=== PATIENT | female | born 1975 | race Caucasian/White ===

== ENCOUNTER 2018-04-29 07:57 | Emergency (ER) | payer MEDICARE, MEDICAID, SELFPAY ==
[2018-04-29 08:11] VITALS: BP 165/83; PULSE 80; RESP 20; TEMP 36.8; O2SAT 100
--- NOTE | 2018-04-29 08:28 | W.ED.GENAD ---
Discharge Plan Disposition Patient Disposition: HOME Condition: Stable Discharge Details Chief Complaint: Allergic Clinical Impression: Urticaria Primary Care Provider: Gerry Cordon ED Provider: Dorian Barrett Home Meds and New Rx's Prescriptions: New prednisone 20 mg tablet 60 mg PO DAILY 4 Days Qty: 12 RF: 0 prochlorperazine maleate [Compazine] 10 mg tablet 10 mg PO Q8H PRN (Reason: nausea and vomiting) 10 Days Qty: 20 RF: 0 Continue methadone 10 MG/ML concentrate 47 mg PO DAILY RF: 0 Discharge Instructions Instructions: Urticaria (ED) Additional Instructions: if you have severe abdominal pain or difficulty breathing return to the emergency department Discharge Data Discharge Physician: Dorian Barrett Medical Decision Making 43 yo female comes in with a rash that appears to be urticaria on her torso, neck and arms. She states she used crack 2 days ago and shortly after this developed the itching rash and now has n/v for a day. Denies any abdominal pain and has no tenderness on exam so doubt sbo or other surgical pathology. No chest pain or pressure so doubt acs. Will treat with antiemetics after checking ekg for qtc prolongation given she is on methadone and start steroids and reasess. she denies any new foods or medications that would cause these symptoms pt tolerating PO, still has no abdominal tenderness now. Will prescribe her compazine for her nausea and will d/c home, return precautions given Differential Diagnosis drug reaction, withdrawal ECG Data Attestation: I personally reviewed and interpreted this ECG (s) as follows: Prior ECG tracings: not available for review Interpretation: sinus rhythm, rate of 76, normal pr, no acute ischemic findings HPI General Mode of arrival: ambulatory. Date/Time Provider Initiated Documentation: 04/29/18 08:05. Limitations to Documentation: no limitations. Information obtained by: patient. History of Present Illness 43 year old F presents to the emergency department with the chief complaint of rash, described as moderate, with intensity rated at 4. Quality is described as other (itching), Patient reports no radiation. Patient started experiencing this day(s) (2) and it has been constant. No relieving factors improve symptom(s), No exacerbating factors reported . Patient notes nausea/vomiting. Patient did receive the following treatments prior to arrival, none Related Data Home Medications Medication Instructions Recorded Confirmed methadone 47 mg PO DAILY 10/23/12 04/29/18 prednisone 60 mg PO DAILY 4 Days #12 tab 04/29/18 prochlorperazine maleate 10 mg PO Q8H PRN 10 Days #20 tab 04/29/18 [Compazine] Previous Rx's Medication Instructions Recorded prednisone 60 mg PO DAILY 4 Days #12 tab 04/29/18 prochlorperazine maleate 10 mg PO Q8H PRN 10 Days #20 tab 04/29/18 [Compazine] Allergies Allergy/AdvReac Type Severity Reaction Status Date / Time codeine [Codeine] Allergy facial Unverified 04/29/18 08:17 swelling/rash General Stated Complaint: Allergic MARIE: 3 Review of Systems Review of Systems All systems reviewed & are unremarkable except as noted in HPI and below Constitutional Denies chills, Denies fever(s) and Denies weakness Eyes Denies loss of vision ENT Denies change in voice Cardiovascular Denies chest pain and Denies dyspnea Respiratory Denies dyspnea Gastrointestinal Denies abdominal pain Genitourinary Denies dysuria Musculoskeletal Denies joint swelling Neurologic Denies loss of vision and Denies weakness Psychiatric Denies depression Endocrine Denies cold intolerance and Denies heat intolerance [facility] Social History Smoking/Tobacco Use Status: Current every day Exam Const General: no acute distress Orientation: alert HENMS Head: normal to inspection Ears: external ears normal General nose exam: external nose normal Mouth: moist mucous membranes Eyes General: appearance normal, both eyes and all related structures Neck Neck: normal visual inspection Resp Effort & Inspection: normal respiratory effort and able to speak in complete sentences Cardio Rate: regular rate GI Inspection: normal to inspection Palpation: nontender Skin General skin exam: other (multiple red patches of various sizes with mild erythema, blanches, not tender or warm to touch on torso arms and neck, no mucous membrane lesions) Neuro General: alert and oriented x3 Extrem General: normal to inspection Psych Mental Status: mental status grossly normal Course Vital Signs Temperature 36.8 C 04/29/18 08:11 Pulse 80 04/29/18 08:11 Respiratory Rate 20 04/29/18 08:11 Blood Pressure 165/83 H 04/29/18 08:11 Pulse Oximetry 100 04/29/18 08:11 Temperature 36.8 C 04/29/18 08:11 Temperature Source Temporal Artery Scan 04/29/18 08:11 Pulse 80 04/29/18 08:11 Respiratory Rate 20 04/29/18 08:11 Respiratory Effort Non-Labored 04/29/18 08:16 Blood Pressure 165/83 H 04/29/18 08:11 Blood Pressure Position Sitting 04/29/18 08:11 Pulse Oximetry 100 04/29/18 08:11 Oxygen Delivery Method Room Air 04/29/18 08:11 Oxygen Flow Rate 0 04/29/18 08:11
--- NOTE | 2018-04-29 08:32 | ED.GENADUL_ITS ---
Discharge Plan Disposition Patient Disposition: HOME Condition: Stable Discharge Details Chief Complaint: Allergic Clinical Impression: Urticaria Primary Care Provider: Gerry Cordon ED Provider: Dorian Barrett Home Meds and New Rx's Prescriptions: New prednisone 20 mg tablet 60 mg PO DAILY 4 Days Qty: 12 RF: 0 prochlorperazine maleate [Compazine] 10 mg tablet 10 mg PO Q8H PRN (Reason: nausea and vomiting) 10 Days Qty: 20 RF: 0 Continue methadone 10 MG/ML concentrate 47 mg PO DAILY RF: 0 Discharge Instructions Instructions: Urticaria (ED) Additional Instructions: if you have severe abdominal pain or difficulty breathing return to the emergency department Discharge Data Discharge Physician: Dorian Barrett Medical Decision Making 43 yo female comes in with a rash that appears to be urticaria on her torso, neck and arms. She states she used crack 2 days ago and shortly after this developed the itching rash and now has n/v for a day. Denies any abdominal pain and has no tenderness on exam so doubt sbo or other surgical pathology. No chest pain or pressure so doubt acs. Will treat with antiemetics after checking ekg for qtc prolongation given she is on methadone and start steroids and reasess. she denies any new foods or medications that would cause these symptoms pt tolerating PO, still has no abdominal tenderness now. Will prescribe her compazine for her nausea and will d/c home, return precautions given Differential Diagnosis drug reaction, withdrawal ECG Data Attestation: I personally reviewed and interpreted this ECG (s) as follows: Prior ECG tracings: not available for review Interpretation: sinus rhythm, rate of 76, normal pr, no acute ischemic findings HPI General Mode of arrival: ambulatory . Date/Time Provider Initiated Documentation: 04/29/18 08:05 . Limitations to Documentation: no limitations . Information obtained by: patient . History of Present Illness 43 year old F presents to the emergency department with the chief complaint of rash, described as moderate, with intensity rated at 4. Quality is described as other (itching), Patient reports no radiation. Patient started experiencing this day(s) (2) and it has been constant. No relieving factors improve symptom(s), No exacerbating factors reported . Patient notes nausea/ vomiting. Patient did receive the following treatments prior to arrival, none Related Data Home Medications Medication Instructions Recorded Confirmed methadone 47 mg PO DAILY 10/23/12 04/29/18 prednisone 60 mg PO DAILY 4 Days #12 tab 04/29/18 prochlorperazine maleate 10 mg PO Q8H PRN 10 Days #20 tab 04/29/18 [Compazine] Previous Rx's Medication Instructions Recorded prednisone 60 mg PO DAILY 4 Days #12 tab 04/29/18 prochlorperazine maleate 10 mg PO Q8H PRN 10 Days #20 tab 04/29/18 [Compazine] Allergies Allergy/AdvReac Type Severity Reaction Status Date / Time codeine [Codeine] Allergy facial Unverified 04/29/18 08:17 swelling/rash General Stated Complaint: Allergic MARIE: 3 Review of Systems Review of Systems All systems reviewed & are unremarkable except as noted in HPI and below Constitutional Denies chills, Denies fever(s) and Denies weakness Eyes Denies loss of vision ENT Denies change in voice Cardiovascular Denies chest pain and Denies dyspnea Respiratory Denies dyspnea Gastrointestinal Denies abdominal pain Genitourinary Denies dysuria Musculoskeletal Denies joint swelling Neurologic Denies loss of vision and Denies weakness Psychiatric Denies depression Endocrine Denies cold intolerance and Denies heat intolerance [facility] Social History Smoking/Tobacco Use Status: Current every day Exam Const General: no acute distress Orientation: alert HENCA Head: normal to inspection Ears: external ears normal General nose exam: external nose normal Mouth: moist mucous membranes Eyes General: appearance normal, both eyes and all related structures Neck Neck: normal visual inspection Resp Effort & Inspection: normal respiratory effort and able to speak in complete sentences Cardio Rate: regular rate GI Inspection: normal to inspection Palpation: nontender Skin General skin exam: other (multiple red patches of various sizes with mild erythema, blanches, not tender or warm to touch on torso arms and neck, no mucous membrane lesions) Neuro General: alert and oriented x3 Extrem General: normal to inspection Psych Mental Status: mental status grossly normal Course Vital Signs Temperature 36.8 C 04/29/18 08:11 Pulse 80 04/29/18 08:11 Respiratory Rate 20 04/29/18 08:11 Blood Pressure 165/83 H 04/29/18 08:11 Pulse Oximetry 100 04/29/18 08:11 Temperature 36.8 C 04/29/18 08:11 Temperature Source Temporal Artery Scan 04/29/18 08:11 Pulse 80 04/29/18 08:11 Respiratory Rate 20 04/29/18 08:11 Respiratory Effort Non-Labored 04/29/18 08:16 Blood Pressure 165/83 H 04/29/18 08:11 Blood Pressure Position Sitting 04/29/18 08:11 Pulse Oximetry 100 04/29/18 08:11 Oxygen Delivery Method Room Air 04/29/18 08:11 Oxygen Flow Rate 0 04/29/18 08:11
[2018-04-29] MEDS: Ondansetron O.D.T. 4 MG TABEF 8 MG PO (08:43)
--- NOTE | 2018-04-29 09:40 | NUR.NOTE ---
Nursing Note: Called [facility] and spoke with MARIANNA Fregoso. She stated that she last received methadone ; 47mg. Dorcas Boateng.
[2018-04-29] MEDS: Methadone Liquid 10 MG/ML 47 MG PO (09:44)
[2018-04-29] MEDS: predniSONE 20 MG TAB 60 MG PO (09:46)
[2018-04-29 10:30] VITALS: BP 139/98; PULSE 68; RESP 16; TEMP 36; O2SAT 68
--- NOTE | 2018-04-30 10:03 | PDOC.ERCMPRO ---
Care Management Progress Note 04/30-Dr. Barrett requested assistance with Kathi being re-established with her PCP office. Kathi used to see Dr. Cordon at [facility]. No ED f/u needed. Referral faxed to [facility].
--- NOTE | 2018-04-30 10:11 | CMPROGNOTE_ITS ---
Care Management Progress Note 04/30-Dr. Barrett requested assistance with Kathi being re-established with her PCP office. Kathi used to see Dr. Cordon at [facility]. No ED f/u needed. Referral faxed to [facility].
== END 2018-04-29 10:34 | disposition home or self-care (01) ==
PROVIDERS: Emergency Provider Emergency Medicine; PCP Family Medicine
DX: L50.9 Urticaria, unspecified (principal); R03.0 Elevated blood-pressure reading, without diagnosis of hypertension
CPT/HCPCS: 93005; 99283; 93010; J7512

== ENCOUNTER 2018-05-01 12:36 | Emergency (ER) | payer MEDICARE, MEDICAID, SELFPAY ==
[2018-05-01] VITALS (23 sets, daily range): BP systolic 157–172; BP diastolic 65–88; PULSE 60–101; RESP 22; TEMP 37.1; O2SAT 97–100
[2018-05-01] MEDS: Prochlorperazine 10 MG/2 ML VIAL IVP (13:07)
[2018-05-01] MEDS: Normal Saline 1,000 ML 1000 ML IV ×2 (13:07→15:43)
[2018-05-01 13:46] LABS: HCT 44.5 % (36.0-46.0); HGB 15.7 g/dL (12.0-15.5); Mean Corp. HGB Concentration 35.3 g/dL (32.0-36.0); Mean Corpuscular Hemoglobin 28.5 pg (27.0-33.0); Mean Corpuscular Volume 80.9 fL (80-95); Mean Platelet Volume 10.8 fL (8.0-11.0); Platelet Count 342 x1000/uL (130-400); RBC Distribution Width 14.4 % (11.7-14.6); White Blood Cell Count 22.83 k/cumm (4.4-10.8)
[2018-05-01 14:06] LABS: ALT 46 U/L (12-78); AST 27 U/L (15-37); Albumin 4.3 g/dL (3.4-5.0); Alkaline Phosphatase 81 U/L (46-116); Anion Gap 11.7 mmol/L (3-11); BUN 15 mg/dL (7-18); Bilirubin, Total 0.9 mg/dL (0.2-1.0); CO2 28.3 mmol/L (21.0-32.0); CREATININE 0.87 mg/dL (0.55-1.02); Calcium 9.1 mg/dL (8.5-10.1); Chloride 98 mmol/L (98-107); Glucose 176 mg/dL (70-100); Sodium 138 mmol/L (136-145); Total Protein 9.2 g/dL (6.4-8.2)
[2018-05-01 14:08] LABS: Potassium 2.4 mmol/L (3.5-5.1)
--- NOTE | 2018-05-01 14:23 | ED.GENADUL_ITS ---
Discharge Plan Disposition Patient Disposition: HOME Condition: Improving Discharge Details Chief Complaint: Nausea/Vomit/Diar Clinical Impression: Rash, Urticaria, Vomiting, Hypokalemia Primary Care Provider: Gerry Cordon ED Provider: Lexy Mayorga Home Meds and New Rx's Prescriptions: New hydrocortisone 2 % lotion 1 applic TP BID Qty: 29.6 RF: 0 promethazine 25 mg tablet 25 mg PO Q6H PRN (Reason: nausea and vomiting) Qty: 7 RF: 0 metformin 500 mg tablet 500 mg PO BID Qty: 30 RF: 0 blood-glucose meter [Accu-Chek Guide Glucose Meter] misc .ROUTE .MEDSUPPLY Qty: 1 RF: 0 blood sugar diagnostic [Accu-Chek Guide] strip .ROUTE .MEDSUPPLY Qty: 20 RF: 0 lancets [Lancets, Super Thin] misc .ROUTE .MEDSUPPLY Qty: 50 RF: 0 Continue methadone 10 MG/ML concentrate 47 mg PO DAILY RF: 0 prednisone 20 mg tablet 60 mg PO DAILY 4 Days Qty: 12 RF: 0 Discontinued prochlorperazine maleate [Compazine] 10 mg tablet 10 mg PO Q8H PRN (Reason: nausea and vomiting) 10 Days Qty: 20 RF: 0 Discharge Instructions Instructions: Urticaria (ED), Hypokalemia (ED), Acute Rash (ED) Additional Instructions: Finish your steroid prescription that you have at home. Stop taking the Compazine. Start taking the Phenergan as needed and directed for nausea or vomiting. Eat foods with potassium including bananas, spinach, potatoes, tomato sauce. You should receive a call from care management regarding follow-up with a primary care doctor within the next 1-2 weeks. Return immediately to the emergency department any worsening or new concerning symptoms. Discharge Data Discharge Date/Time-TO BE ENTERED AT DEPARTURE: 05/01/18 21:14 Discharge Physician: Lexy Mayorga Medical Decision Making 43-year-old female who presents with pruritic rash and vomiting for the past 3 days. Patient states she was incarcerated for 9 months and has not had medication for her diabetes or hypertension. States she was taking metformin and is unsure of her blood pressure medications but she does not check her sugar. Blood pressure 166/108. Heart 101. Afebrile. Patient has urticarial rash to extremities and torso with some excoriations consistent with scratching. Her abdomen is soft and nontender. Patient has been unable to take her prednisone and Compazine she was given here for her rash 2 days ago due to her vomiting. She also has been unable to take her methadone for the past few days due to this and she is requesting her dose of methadone here. Patient was given her dose of methadone when she was here [address] an IV, bolus IV fluids, labs, urinalysis, urine , EKG, Compazine, Solu-Medrol, Benadryl, and dose of methadone. We verified patient's dose of methadone at the [facility]. 1415 -- Labs reviewed -potassium 2.4. White blood cell count 22. Glucose 176. Bicarb 28. Anion gap 11. Urinalysis still pending. EKG notes a rate of 58, sinus bradycardia, no acute ST elevation or depression. QTc 332. QRS 96. 1545 --patient still complaining of nausea. Will give a dose of Phenergan IV. Urine resulted and note 15 ketones, negative leukocyte esterase 0-2 WBCs. Urine negative. No UTI symptoms. 1710 --patient complaining of return of nausea. Phenergan not given as it is not compatible with potassium. She had stated her nausea improved and requested food but then vomited one time. She has 50 minutes left in her potassium. Patient was offered admission but she would rather go home. Will order another 20 Meq IV to be given following her first 20 mEq. 1830 --Pt ate a full meal and no further vomiting. 0 --Pt c/o return of itching. Will give her a dose of benadryl and pepcid. A second 20 mEq of IV potassium running. 2044 --repeat potassium 3.4. Pt looks much better, rash improved and no further vomiting. Patient had requested Vistaril for itching. There is an interaction with this with methadone for risk of QT prolongation which I discussed with patient and will rather hold on this at this time. Patient states she had been taking it for the past year while she was incarcerated along with her methadone. Patient does not have a primary care doctor. Will place patient on care management list for follow-up for reevaluation and to discuss if Vistaril would be safe to continue with her methadone. Patient also states that her Compazine was not helping. Will stop the Compazine. Patient is requesting a prescription for Phenergan. Patient states she has not had her metformin or meter for the past year while she was in [facility]. She states she is taking metformin 500 mg twice daily. HPI General Mode of arrival: ambulatory . Date/Time Provider Initiated Documentation: 05/01/18 12:55 . Limitations to Documentation: no limitations . Information obtained by: patient . HPI Narrative: Patient is a 43-year-old female who presents with rash and vomiting for the past 3 days. Patient states her rash is itchy and started on her arms and torso and now has progressed to her legs. She states she has been vomiting every few minutes and unable to keep down any fluids or food. She was seen here 3 days ago for her rash and was given a prescription for prednisone and Compazine which she states she has been unable to keep down since she was here 3 days ago. She thought her rash was due to smoking marijuana laced with crack which she did 1 day before the onset of her rash began. She denies any other new meds pneumocystis soaps or detergents new foods. She also states she is on methadone for narcotic drug abuse and was given her last dose while here in the ED 3 days ago and has not been able to get to [facility] clinic since she was here 3 days ago due to her being sick with vomiting. Past medical history: Narcotic drug abuse, Diabetes, Hypertension, Hyperlipidemia Surgical history: L leg surgery Social history: Smokes tobacco, occasional marijuana, denies alcohol Meds: Methadone, prednisone, Compazine Allergies: Codeine (nausea, vomiting) LMP: End March 2017 Related Data Home Medications Medication Instructions Recorded Confirmed methadone 47 mg PO DAILY 10/23/12 05/01/18 prednisone 60 mg PO DAILY 4 Days #12 tab 04/29/18 05/01/18 blood sugar diagnostic [Accu-Chek #20 each 05/01/18 Guide strips] blood-glucose meter [Accu-Chek #1 each 05/01/18 Guide Glucose Meter] hydrocortisone 1 applic TP BID #29.6 ml 05/01/18 lancets [Lancets, Super Thin] #50 each 05/01/18 metformin 500 mg PO BID #30 tab 05/01/18 promethazine 25 mg PO Q6H PRN #7 tab 05/01/18 Previous Rx's Medication Instructions Recorded prednisone 60 mg PO DAILY 4 Days #12 tab 04/29/18 blood sugar diagnostic [Accu-Chek #20 each 05/01/18 Guide strips] blood-glucose meter [Accu-Chek #1 each 05/01/18 Guide Glucose Meter] hydrocortisone 1 applic TP BID #29.6 ml 05/01/18 lancets [Lancets, Super Thin] #50 each 05/01/18 metformin 500 mg PO BID #30 tab 05/01/18 promethazine 25 mg PO Q6H PRN #7 tab 05/01/18 Allergies Allergy/AdvReac Type Severity Reaction Status Date / Time codeine [Codeine] Allergy facial Unverified 05/01/18 12:55 swelling/rash General Stated Complaint: Nausea/Vomit/Diar MARIE: 3 Review of Systems Review of Systems All systems reviewed & are unremarkable except as noted in HPI and below Constitutional Reports as per HPI, Denies chills and Denies fever(s) Eyes Denies blurry vision ENT Denies dizziness, Denies sore throat and Denies throat swelling Cardiovascular Denies chest pain and Denies dyspnea Respiratory Denies dyspnea Gastrointestinal Denies abdominal pain, Denies diarrhea and Reports vomiting Genitourinary Denies hematuria and Denies dysuria Musculoskeletal Denies back pain and Denies numbness Integumentary/Breasts Denies lesions and Reports rash Neurologic Denies dizziness and Denies numbness Allergic/Immunologic Denies throat swelling PFSH Social History Smoking/Tobacco Use Status: Current every day Exam Const General: cooperative, healthy appearing and no acute distress [facility] Head: normal to inspection Mouth: oral mucosae normal Eyes General: appearance normal, both eyes and all related structures Neck Neck: normal visual inspection Resp Effort & Inspection: normal respiratory effort and able to speak in complete sentences Auscultation: clear to auscultation bilaterally Cardio Rate: regular rate Rhythm: regular rhythm GI Palpation: soft, not rigid and nontender Skin Rashes: rashes noted (Scattered urticarial lesions noted to arms, legs and torso. Some excoriations noted overlying urticaria. No active bleeding, discharge, fluctuance or induration per) Neuro General: alert, awake and oriented x3 Motor: muscle tone normal throughout Extrem General: normal to inspection and full ROM Psych Appearance: grossly normal Affect: normal affect Course 05/01/18 15:34 Urine - Reflex from Ua Urine Culture - Pending Laboratory Tests Range/Units 05/01/18 05/01/18 05/01/18 12:50 12:50 15:34 WBC (4.4-10.8) k/cumm 22.83 H RBC (4.00-5.20) m/cumm 5.50 H Hgb (12.0-15.5) g/dL 15.7 H Hct (36.0-46.0) % 44.5 MCV (80-95) fL 80.9 MCH (27.0-33.0) pg 28.5 MCHC (32.0-36.0) g/dL 35.3 RDW (11.7-14.6) % 14.4 Plt Count (130-400) x1000/uL 342 MPV (8.0-11.0) fL 10.8 Sodium (136-145) mmol/L 138 Potassium (3.5-5.1) mmol/L 2.4 L* Chloride (98-107) mmol/L 98 Carbon Dioxide (21.0-32.0) mmol/L 28.3 Anion Gap (3-11) mmol/L 11.7 H BUN (7-18) mg/dL 15 Creatinine (0.55-1.02) mg/dL 0.87 Estimated GFR/1.73 m2 (mL/min/1.73m2) >= 60.00 Glucose (70-100) mg/dL 176 H Calcium (8.5-10.1) mg/dL 9.1 Total Bilirubin (0.2-1.0) mg/dL 0.9 AST (15-37) U/L 27 ALT (12-78) U/L 46 Alkaline Phosphatase (46-116) U/L 81 Total Protein (6.4-8.2) g/dL 9.2 H Albumin (3.4-5.0) g/dL 4.3 Urine Color (Yellow) Yellow Urine Clarity Cloudy Urine pH (5-8) 6.5 Ur Specific [place] (1.005-1.025) 1.025 Urine Protein (Negative) mg/dL 30 H Urine Ketones (Negative) mg/dL 15 H Urine Blood (Negative) Negative Urine Nitrite (Negative) Negative Urine Bilirubin (Negative) Moderate H Urine Urobilinogen (Up TO 0.2) EU/dL >=8.0 Ur Leukocyte Esterase (Negative) Negative Urine RBC (0-2) Negative Urine WBC (0-5) HPF 0-2 Ur Epithelial Cells (Negative) HPF Rare Urine Crystals (Negative) HPF Negative Urine Bacteria (Negative) HPF Moderate Urine Casts (Negative) LPF Negative Urine Mucus (Negative) Heavy Urine Other (Negative) Rare renal Ur Culture Indicated? Yes Urine Glucose (Negative) mg/dL 100 Range/Units 05/01/18 20:30 WBC (4.4-10.8) k/cumm RBC (4.00-5.20) m/cumm Hgb (12.0-15.5) g/dL Hct (36.0-46.0) % MCV (80-95) fL MCH (27.0-33.0) pg MCHC (32.0-36.0) g/dL RDW (11.7-14.6) % Plt Count (130-400) x1000/uL MPV (8.0-11.0) fL Sodium (136-145) mmol/L 135 L Potassium (3.5-5.1) mmol/L 3.4 L D Chloride (98-107) mmol/L 103 Carbon Dioxide (21.0-32.0) mmol/L 24.0 Anion Gap (3-11) mmol/L 8.0 BUN (7-18) mg/dL 13 Creatinine (0.55-1.02) mg/dL 0.99 Estimated GFR/1.73 m2 (mL/min/1.73m2) >= 60.00 Glucose (70-100) mg/dL 267 H Calcium (8.5-10.1) mg/dL 7.8 L Total Bilirubin (0.2-1.0) mg/dL AST (15-37) U/L ALT (12-78) U/L Alkaline Phosphatase (46-116) U/L Total Protein (6.4-8.2) g/dL Albumin (3.4-5.0) g/dL Urine Color (Yellow) Urine Clarity Urine pH (5-8) Ur Specific [place] (1.005-1.025) Urine Protein (Negative) mg/dL Urine Ketones (Negative) mg/dL Urine Blood (Negative) Urine Nitrite (Negative) Urine Bilirubin (Negative) Urine Urobilinogen (Up TO 0.2) EU/dL Ur Leukocyte Esterase (Negative) Urine RBC (0-2) Urine WBC (0-5) HPF Ur Epithelial Cells (Negative) HPF Urine Crystals (Negative) HPF Urine Bacteria (Negative) HPF Urine Casts (Negative) LPF Urine Mucus (Negative) Urine Other (Negative) Ur Culture Indicated? Urine Glucose (Negative) mg/dL Vital Signs Temperature 98.8 F 05/01/18 12:45 Pulse 101 H 05/01/18 12:45 Respiratory Rate 22 05/01/18 12:45 Blood Pressure 166/88 H 05/01/18 12:45 Pulse Oximetry 100 05/01/18 12:45 Temperature 98.8 F 05/01/18 12:45 Temperature Source Temporal Artery Scan 05/01/18 12:45 Pulse 69 05/01/18 13:46 Respiratory Rate 22 05/01/18 12:45 Respiratory Effort Non-Labored 05/01/18 12:49 Blood Pressure 166/67 H 05/01/18 13:46 Blood Pressure Mean 93 05/01/18 13:46 Blood Pressure Position Supine 05/01/18 12:45 Pulse Oximetry 100 05/01/18 13:50 Oxygen Delivery Method Room Air 05/01/18 12:45 Oxygen Flow Rate 0 05/01/18 12:45 Pain Level 0 05/01/18 12:45 Lab/Test Results Lab/Test Results: Laboratory Tests Range/Units 05/01/18 05/01/18 12:50 12:50 WBC (4.4-10.8) k/cumm 22.83 H RBC (4.00-5.20) m/cumm 5.50 H Hgb (12.0-15.5) g/dL 15.7 H Hct (36.0-46.0) % 44.5 MCV (80-95) fL 80.9 MCH (27.0-33.0) pg 28.5 MCHC (32.0-36.0) g/dL 35.3 RDW (11.7-14.6) % 14.4 Plt Count (130-400) x1000/uL 342 MPV (8.0-11.0) fL 10.8 Sodium (136-145) mmol/L 138 Potassium (3.5-5.1) mmol/L 2.4 L* Chloride (98-107) mmol/L 98 Carbon Dioxide (21.0-32.0) mmol/L 28.3 Anion Gap (3-11) mmol/L 11.7 H BUN (7-18) mg/dL 15 Creatinine (0.55-1.02) mg/dL 0.87 Estimated GFR/1.73 m2 (mL/min/1.73m2) >= 60.00 Glucose (70-100) mg/dL 176 H Calcium (8.5-10.1) mg/dL 9.1 Total Bilirubin (0.2-1.0) mg/dL 0.9 AST (15-37) U/L 27 ALT (12-78) U/L 46 Alkaline Phosphatase (46-116) U/L 81 Total Protein (6.4-8.2) g/dL 9.2 H Albumin (3.4-5.0) g/dL 4.3
[2018-05-01] MEDS: methylPREDNISolone SUCC 125 MG VIAL IVP (14:46)
[2018-05-01] MEDS: Methadone Liquid 10 MG/ML 47 MG PO (14:51)
[2018-05-01] MEDS: Potassium Chloride 10 MEQ CAPCR 40 MEQ PO (15:36)
[2018-05-01] MEDS: POTASSIUM CHLORIDE 20 MEQ/100 ML BAG 50 MEQ IVPB ×2 (15:43→17:43)
[2018-05-01 15:45] LABS: Bilirubin Moderate (Negative); Blood Negative (Negative); Clarity Cloudy; Glucose 100 mg/dL (Negative); Ketones 15 mg/dL (Negative); Leukocyte Esterase Negative (Negative); Nitrite Negative (Negative); Specific Gravity 1.025 (1.005-1.025); Urobilinogen >=8.0 EU/dL (Up TO 0.2); pH 6.5 (5-8)
[2018-05-01 15:53] LABS: Epithelial Cells Rare HPF (Negative); Other Cells Rare Renal (Negative); RBC Negative (0-2); WBC 0-2 HPF (0-5)
[2018-05-01 15:54] LABS: Bacteria Moderate HPF (Negative); C & S Indicated? Yes; Casts Negative LPF (Negative); Crystals Negative HPF (Negative); Mucus Heavy (Negative)
[2018-05-01] MEDS: diphenhydrAMINE 25 MG CAP (15:56)
[2018-05-01] MEDS: diphenhydrAMINE 25 MG CAP PO (19:06)
[2018-05-01] MEDS: Famotidine 20 MG TAB PO (19:07)
[2018-05-01 20:46] LABS: BUN 13 mg/dL (7-18); CREATININE 0.99 mg/dL (0.55-1.02); Calcium 7.8 mg/dL (8.5-10.1); Chloride 103 mmol/L (98-107); Glucose 267 mg/dL (70-100); Potassium 3.4 mmol/L (3.5-5.1); Sodium 135 mmol/L (136-145)
[2018-05-01] MEDS: Promethazine 25 MG TAB PO (21:14)
[2018-05-02 01:14] VITALS: BP 157/65; PULSE 63; RESP 22; TEMP 37.1; O2SAT 98
--- NOTE | 2018-05-04 12:16 | NUR.NOTE ---
Nursing Note: Patient called stating that [facility] only has the 2.5% lotion. I called the pharmacy, they have it on order and will be getting it in tomorrow and gave the ok to prescribe 2.5% lotion per Dr. Hansel Hutchinson. I called the patient back and she is aware that it will be in tomorrow and for the correct strength. Dorcas Boateng.
== END 2018-05-01 21:14 | disposition home or self-care (01) ==
PROVIDERS: Emergency Provider Physician Assistant; PCP Family Medicine
DX: E11.9 Type 2 diabetes mellitus without complications (principal); R00.1 Bradycardia, unspecified; R21 Rash and other nonspecific skin eruption; L50.9 Urticaria, unspecified; R11.10 Vomiting, unspecified; E87.6 Hypokalemia; I10 Essential (primary) hypertension; Z79.84 Long term (current) use of oral hypoglycemic drugs
CPT/HCPCS: 36415; 80048; 80053; 85027; 87077; 93005; 96361; 96365; 96366; 96375; 99284; 81003; 81015; 87086; 93010; J0780; J2930; J3480

== ENCOUNTER 2018-05-02 09:06 | Outpatient (RCR) | payer MEDICARE, MEDICAID, SELFPAY ==
--- NOTE | 2018-05-02 09:07 | COCO.VHC ---
New/Renewal Application Submitted?: Yes (04/16/18) Notes:: Kathi contacted me because her insurance is not active yet. I faxed them the 202med again so hopefully this will go through. Kathi is having access to care issues.
== END 2018-05-30 23:59 | disposition home or self-care (01) ==
LOC: COCO 09:06
PROVIDERS: PCP Family Medicine; Visit Provider Family Medicine

== ENCOUNTER 2018-09-20 20:06 | Emergency (ER) | payer MEDICARE, MEDICAID, SELFPAY ==
[2018-09-20] VITALS (34 sets, daily range): BP systolic 113–142; BP diastolic 64–72; PULSE 68–89; RESP 13–27; TEMP 37; O2SAT 93–100
--- NOTE | 2018-09-20 20:07 | W.ED.GENAD ---
Discharge Plan Disposition Patient Disposition: HOME Condition: Good Discharge Details Chief Complaint: OD/Poison Clinical Impression: Accidental opiate poisoning Reason For Visit: PRANAV Primary Care Provider: Gerry Cordon ED Provider: Jonatan Rizzo Home Meds and New Rx's Prescriptions: Continued methadone 10 MG/ML concentrate 47 mg PO DAILY RF: 0 hydrocortisone 2 % lotion 1 applic TP BID Qty: 29.6 RF: 0 promethazine 25 mg tablet 25 mg PO Q6H PRN (Reason: nausea and vomiting) Qty: 7 RF: 0 metformin 500 mg tablet 500 mg PO BID Qty: 30 RF: 0 blood-glucose meter [Accu-Chek Guide Glucose Meter] misc .ROUTE .MEDSUPPLY Qty: 1 RF: 0 blood sugar diagnostic [Accu-Chek Guide] strip .ROUTE .MEDSUPPLY Qty: 20 RF: 0 lancets [Lancets, Super Thin] misc .ROUTE .MEDSUPPLY Qty: 50 RF: 0 Discharge Instructions Additional Instructions: Please take the information for recovery coaches. Consider contacting them for support in trying to beat your addiction. Stay with somebody responsible tonight. Return to emergency department if any issues Referrals: [facility] [Provider Group] Medical Decision Making Patient requesting no Narcan. She is awake enough and protecting her airway with normal vital signs at that I do not think she requires Narcan. We will leave her on the monitor and let her mental status come back to normal. Patient has been sleeping but awakens easily. Her vitals have been fine. Her sats have been fine. She has now been here for about 3 hours. Her friend, who is not impaired, is willing to come and get her to take responsibility for going home. I feel she is stable. She awakens very easily now. Pupils are no longer small to midsize and reactive. Patient has declined having a online health and fitness coach come in but will take their information with her. HPI General Mode of arrival: EMS. Date/Time Provider Initiated Documentation: 09/20/18 20:14. Limitations to Documentation: altered mental status. Information obtained by: patient and EMS. HPI Narrative: Patient arrives by EMS after opiate overdose. Patient is very somnolent and requires repeated questions. She will, however, wake and answer. She used about a bag from someone that she knows but does not usually get drugs from. She has a daily habit. She states after using this bag she started to feel unwell. She became very somnolent, nauseated and vomited twice. Her friend called EMS. She arrives here and has no complaints of pain. She is difficult to keep awake. Related Data Home Medications Medication Instructions Recorded Confirmed methadone 47 mg PO DAILY 10/23/12 05/01/18 blood sugar diagnostic [Accu-Chek #20 each 05/01/18 Guide] blood-glucose meter [Accu-Chek #1 each 05/01/18 Guide Glucose Meter] hydrocortisone 1 applic TP BID #29.6 ml 05/01/18 lancets [Lancets, Super Thin] #50 each 05/01/18 metformin 500 mg PO BID #30 tab 05/01/18 promethazine 25 mg PO Q6H PRN #7 tab 05/01/18 Previous Rx's Medication Instructions Recorded blood sugar diagnostic [Accu-Chek #20 each 05/01/18 Guide] blood-glucose meter [Accu-Chek #1 each 05/01/18 Guide Glucose Meter] hydrocortisone 1 applic TP BID #29.6 ml 05/01/18 lancets [Lancets, Super Thin] #50 each 05/01/18 metformin 500 mg PO BID #30 tab 05/01/18 promethazine 25 mg PO Q6H PRN #7 tab 05/01/18 Allergies Allergy/AdvReac Type Severity Reaction Status Date / Time codeine [Codeine] Allergy facial Unverified 05/01/18 12:55 swelling/rash General MARIE: 3 Review of Systems Review of Systems Unobtainable due to mental status [facility] Social History Smoking/Tobacco Use Status: Current every day Alcohol Intake: never Drug use: Daily Substance use type: heroin Details: 8 bags/day IVDA Do you feel safe at home: Yes Do you feel safe in your relationship?: Yes Exam Const General: lethargic Orientation: oriented x3 HENMT Head: normocephalic and atraumatic Eyes Pupils: pinpoint (about 2mm and minimally reactive) bilaterally Neck Neck: trachea midline and supple Resp Effort & Inspection: normal respiratory effort Auscultation: clear to auscultation bilaterally Cardio Rate: regular rate Rhythm: regular rhythm Heart Sounds: S1 normal and S2 normal Pulses: radial pulses present GI Inspection: non-distended Palpation: soft and nontender Skin General skin exam: no erythema Rashes: no rashes Other: extensive track flores in upper extremities Neuro General: oriented x3, moves all extremities and other (somnelent)
--- NOTE | 2018-09-20 23:43 | NUR.NOTE ---
Nursing Note: pt more alert, and awake. Friend Nidia to bulk picker. Friend states she is not impaired and is willing to take responsibility for pt at home. aware and approves of this plan.
== END 2018-09-20 23:59 | disposition home or self-care (01) ==
PROVIDERS: Emergency Provider Emergency Medicine; PCP Family Medicine
DX: T40.601A Poisoning by unspecified narcotics, accidental (unintentional), initial encounter (principal); R41.82 Altered mental status, unspecified; R40.0 Somnolence; R11.10 Vomiting, unspecified; F11.20 Opioid dependence, uncomplicated
CPT/HCPCS: 99284; 99282

== ENCOUNTER 2020-01-19 09:01 | Inpatient (IN) | payer MEDICARE, MEDICAID, SELFPAY ==
[2020-01-19] VITALS (65 sets, daily range): BP systolic 136–184; BP diastolic 61–114; PULSE 56–111; RESP 12–28; TEMP 36.1–37.2; O2SAT 97–100
--- NOTE | 2020-01-19 09:21 | ED.GENADUL_ITS ---
Discharge Plan Disposition Patient Disposition: [facility] INPATIENT Condition: Stable Discharge Details Chief Complaint: Nausea/Vomit/Diar Clinical Impression: Constipation, Vomiting Primary Care Provider: Unknown,Unknown ED Provider: Gagandeep Banks Home Meds and New Rx's Prescriptions: Continued metformin 500 mg tablet 500 mg PO BID Qty: 30 RF: 0 No Action buprenorphine HCl 150 mcg Film BUCCAL RF: 0 (DME) blood-glucose meter [Accu-Chek Guide Glucose Meter] misc See Dose Instructions .ROUTE .MEDSUPPLY Qty: 1 RF: 0 (DME) blood sugar diagnostic [Accu-Chek Guide test strips] strip See Dose Instructions .ROUTE .MEDSUPPLY Qty: 20 RF: 0 (DME) lancets [Lancets, Super Thin] misc See Dose Instructions .ROUTE .MEDSUPPLY Qty: 50 RF: 0 Discharge Instructions Instructions: Constipation (ED) Additional Instructions: I recommend you take an [id number] stool softener such as Dulcolax once daily in the evening to promote normal bowel movement. May use the Reglan as prescribed, as needed for nausea. IF needed may use provided ativan for persistent nausea. Follow-up with the local asset recovery specialist as discussed with them. Small, sips of fluids to maintain hydration. Medical Decision Making 44-year-old female with history of opiate abuse, most recently admitted to [facility] for rehabilitation and discharged approximately 3 to 4 weeks ago on outpatient buprenorphine, now self tapering. Now with 2 days of vomiting. Has not had a fever or abdominal distention. She arrives with blood pressure 177/112, pulse 84, afebrile and oxygenating normally. Exam reveals slight diaphoresis and piloerection. Differential diagnosis includes narcotic withdrawal, dehydration, metabolic abnormalities. Peripheral IV access difficult, I was able to establish a left EJ, patient given fluid bolus, antiemetics, screening laboratories obtained. X-ray with large amount of retained stool, no evidence of obstruction or free air. Labs know what is likely stress demargination of the white blood cell count to 12, unremarkable hematocrit of 43, platelets 215. Chemistries with sodium 139, potassium 4.2, chloride 101, bicarb 19, BUN 15, creatinine 0.8. Slight elevation of the LFTs with a total bilirubin of 1.7, AST 55, ALT 50. Lipase negative. Ultrasound was obtained which shows a single mobile gallstone but no gallbladder wall thickening. Patient with persistent emesis and underwent CT imagin. Cholelithiasis. No biliary ductal dilatation. Distended gallbladder. 2. 2 mm calcification in the head of the pancreas adjacent to or within the common duct. MRCP may be obtained for further evaluation. 3. Findings suggesting hepatic cirrhosis. Splenomegaly. 4. The findings were discussed with the emergency department on the date of the examination. Following antiemetics, fluids, patient slept, she was able to speak on the phone with a local asset recovery specialist. At approximately 8 hours of care, patient unable to tolerate even liquids by mouth and had recurrent emesis. She may have ileus, gastroenteritis, a component of narcotic withdrawal. Nonetheless, she will require overnight observation and ongoing fluid resuscitation with antiemetics. Lab Data Lab results reviewed: Yes I reviewed the patient's lab results. Labs: Laboratory Results - last 24 hr 01/19/20 01/19/20 10:20 10:20 WBC 12.82 H RBC 5.51 H Hgb 15.3 Hct 43.9 MCV 79.7 L MCH 27.8 MCHC 34.9 RDW 13.9 Plt Count 215 MPV 11.3 H Immature Gran % 0.2 Neutrophils % 72.0 Lymphocytes % 21.5 Monocytes % 4.8 Eosinophils % 1.3 Basophils % 0.2 Absolute Neutrophils 9.23 H Absolute Lymphocytes 2.76 Absolute Monocytes 0.62 Absolute Eosinophils 0.17 Absolute Basophils 0.03 Differential Comment Plt morph reviewed Poikilocytosis 1+ Sodium 139 Potassium 4.2 Chloride 101 Carbon Dioxide 19.3 L Anion Gap 18.7 H BUN 15 Creatinine 0.85 Estimated GFR/1.73 m2 >= 60.00 Glucose 237 H Calcium 9.4 Magnesium 1.9 Total Bilirubin 1.7 H AST 55 H ALT 50 Alkaline Phosphatase 73 Total Protein 8.4 H Albumin 4.0 Lipase 128 HPI General Mode of arrival: ambulatory . Date/Time Provider Initiated Documentation: 01/19/20 09:04 . Limitations to Documentation: no limitations . Information obtained by: patient . History of Present Illness 44 year old F presents to the emergency department with the chief complaint of Vomiting x 2 days, described as moderate, and is localized to the abdomen. Patient reports no radiation. Patient started experiencing this day(s) and it has been intermittent. No relieving factors improve symptom(s), No exacerbating factors reported . Patient notes denies fever/chills, headaches and shortness of breath. Patient did receive the following treatments prior to arrival, none Related Data Home Medications Medication Instructions Recorded Confirmed blood sugar diagnostic [Accu-Chek #20 each 05/01/18 Guide test strips] blood-glucose meter [Accu-Chek #1 each 05/01/18 Guide Glucose Meter] lancets [Lancets, Super Thin] #50 each 05/01/18 metformin 500 mg PO BID #30 tab 05/01/18 buprenorphine HCl mcg BUCCAL 01/19/20 Previous Rx's Medication Instructions Recorded blood sugar diagnostic [Accu-Chek #20 each 05/01/18 Guide test strips] blood-glucose meter [Accu-Chek #1 each 05/01/18 Guide Glucose Meter] lancets [Lancets, Super Thin] #50 each 05/01/18 metformin 500 mg PO BID #30 tab 05/01/18 Allergies Allergy/AdvReac Type Severity Reaction Status Date / Time codeine [Codeine] Allergy facial Unverified 01/19/20 09:11 swelling/rash General Stated Complaint: Nausea/Vomit/Diar MARIE: 3 Review of Systems Narrative: Admitted to [facility] for rehab for opiate abuse, on buprenorphine and now self tapering. Has tried to contact the [facility] clinic. No fever or abdominal distention. [facility] Social History Smoking/Tobacco Use Status: Current every day Alcohol Intake: never Drug use: Current Sobriety Substance use type: heroin Details: 8 bags/day IVDA---comming off Buprenorphine--unknown dose Do you feel safe at home: Yes Do you feel safe in your relationship?: Yes Exam Narrative Exam Narrative: GEN: awake, alert, oriented 3. Pleasant, well groomed, interactive, slight diaphoresis and piloerection. HEAD: Normocephalic, atraumatic ENT: Mucous membranes moist, oropharynx unremarkable, External ear exam unremarkable EYES: PERRL, EOMI NECK: Full ROM, no DAT, no menigismus CHEST/RESP: Nontender, clear to auscultation bilateral, no wheeze/rhonchi/rales CARDIOVASCULAR: RRR, no murmur, rub marko. 2+ Rad pulse bilateral ABDOMEN: Soft, nontender, no mass. +Bowel sounds EXT: Full ROM, no edema, no rash Neuro: Grossly normal neurologic exam, conversant, interactive. Psych: Speech fluent, thoughts congruent, affect normal Course Vital Signs Vital signs: Vital Signs Temperature 36.1 C L 01/19/20 09:06 Pulse 84 01/19/20 09:06 Respiratory Rate 20 01/19/20 09:06 Blood Pressure 177/112 H 01/19/20 09:06 Pulse Oximetry 97 01/19/20 09:06 Temperature 36.1 C L 01/19/20 09:06 Temperature Source Temporal Artery Scan 01/19/20 09:06 Pulse 84 01/19/20 09:06 Respiratory Rate 01/19/20 09:06 Respiratory Effort Non-Labored 01/19/20 09:10 Blood Pressure 177/112 H 01/19/20 09:06 Blood Pressure Position Sitting 01/19/20 09:06 Pulse Oximetry 97 01/19/20 09:06 Oxygen Delivery Method Room Air 01/19/20 09:06 Oxygen Flow Rate 0 01/19/20 09:06 Pain Level 0 01/19/20 09:06 Procedures EJ/Peripheral Line Neck L: Time Out Performed: Yes Skin Cleansed in Sterile Fashion: Yes Size (gauge): 18 IV Secured and Dressing Applied: Yes Patient Tolerated Procedure: well
[2020-01-19] MEDS: LORazepam 2 MG/ML VIAL (10:08)
[2020-01-19] MEDS: Ondansetron 4 MG/2 ML VIAL IVP ×2 (10:32→11:47)
[2020-01-19] MEDS: LORazepam 2 MG/ML VIAL 1 MG IVP (10:36)
[2020-01-19] MEDS: Normal Saline 1,000 ML 1000 ML IV ×2 (10:36→11:50)
[2020-01-19 10:48] LABS: Abs Immature Grans 0.03 k/cumm (0.0-0.09); Absolute Basophil Count 0.03 k/cumm (0.0-0.2); Absolute Eosinophil Count 0.17 k/cumm (0.0-0.7); Absolute Lymphocyte Count 2.76 k/cumm (1.2-3.4); Basophils % 0.2; Eosinophils % 1.3; HCT 43.9 % (36.0-46.0); HGB 15.3 g/dL (12.0-15.5); Immature Grans % 0.2 %; Lymphocytes % 21.5; Mean Corp. HGB Concentration 34.9 g/dL (32.0-36.0); Mean Corpuscular Hemoglobin 27.8 pg (27.0-33.0); Mean Corpuscular Volume 79.7 fL (80-95); Mean Platelet Volume 11.3 fL (8.0-11.0); Monocytes % 4.8; RBC 5.51 m/cumm (4.00-5.20); RBC Distribution Width 13.9 % (11.7-14.6); White Blood Cell Count 12.82 k/cumm (4.4-10.8)
[2020-01-19 10:53] LABS: Absolute Monocyte Count 0.62 k/cumm (0.11-0.7); Absolute Neutrophil Count 9.23 k/cumm (1.2-6.7)
[2020-01-19 11:08] LABS: ALT 50 U/L (14-59); AST 55 U/L (15-37); Alkaline Phosphatase 73 U/L (46-116); Anion Gap 18.7 mmol/L (3-11); BUN 15 mg/dL (7-18); Bilirubin, Total 1.7 mg/dL (0.2-1.0); CO2 19.3 mmol/L (21.0-32.0); CREATININE 0.85 mg/dL (0.55-1.02); Calcium 9.4 mg/dL (8.5-10.1); Chloride 101 mmol/L (98-107); Glucose 237 mg/dL (74-106); Lipase 128 U/L (73-393); Magnesium 1.9 mg/dL (1.8-2.4); Potassium 4.2 mmol/L (3.5-5.1); Sodium 139 mmol/L (136-145); Total Protein 8.4 g/dL (6.4-8.2)
[2020-01-19 11:14] LABS: Diff Comment PLT Morph Reviewed; Platelet Count 215 x1000/uL (130-400)
[2020-01-19 11:18] LABS: Poikilocytes 1+
--- NOTE | 2020-01-19 11:28 | DI.RAD_ITS ---
EXAM: 2D digital imaging was performed. CLINICAL HISTORY: vomiting. COMPARISON: No exams were available for comparison TECHNIQUE: Supine and uprightSupine and Lateral views of the abdomen was performed. FINDINGS: LUNG BASES: No focal consolidating infiltrates. BOWEL GAS PATTERN: Large amount of retained stool consistent with constipation. No evidence of obstr uction. FREE AIR: None. CALCIFICATIONS: No radiopaque calcifications. OSSEOUS STRUCTURES: Normal for age. OTHER FINDINGS: None. IMPRESSION: Constipation. DATA REPOSITORY: RADIATION DOSE DELIVERED:
--- NOTE | 2020-01-19 12:30 | DI.US_ITS ---
EXAM: US ABDOMEN LIMITED CLINICAL HISTORY: vomiting, elevated bilirubin. Evaluate RUQ please TECHNIQUE: Ultrasound abdomen performed using standard protocol. COMPARISON: No exams were available for comparison FINDINGS: IVC: Visualized portions normal caliber. PANCREAS: Normal where visualized. LIVER: 19.7 cm in length. There is a lobulated contour of the liver suggesting hepatic cirrhosis. H epatopedal flow in the Portal Vein. GALLBLADDER: 0.9 cm mobile gallstone. No evidence of wall thickening. No pericholecystic fluid ident ified. Distended gallbladder measuring 4.2 cm in diameter. BILIARY SYSTEM: Common bile duct measures 3.1 mm. No intrahepatic biliary ductal dilation. MENDOZA'S SIGN: Negative. KIDNEYS: Right kidney is unremarkable. No evidence of renal calculi. No evidence of hydronephrosis. No renal mass or cyst identified. IMPRESSION: 1. Cholelithiasis. No findings to suggest acute cholecystitis. No biliary ductal dilatation. 2. Hepatomegaly and findings suggestive of hepatic cirrhosis. 3. The findings were discussed with the emergency department on the date of the examination. DATA REPOSITORY:
[2020-01-19] MEDS: Normal Saline 250 ML IV (14:45)
--- NOTE | 2020-01-19 14:55 | DI.CT_ITS ---
EXAM: CT ABDOMEN PELVIS WO CLINICAL HISTORY: vomiting, poor access (EJ), hx IVDU. TECHNIQUE: Imaging Protocol: Axial computed tomography images with coronal and sagittal reformatted images were created and reviewed. COMPARISON: US US ABDOMEN LIMITED from 01/19/2020 FINDINGS: ABDOMEN: Lung Bases: Normal where visualized. Liver: Normal density. No measurable mass. There is a lobulated contour to the liver consistent with hepatic cirrhosis. Gallbladder and biliary tract: Single gallstone visualized. Distended gallbladder with a diameter 4. 7 cm. No biliary ductal dilatation. Pancreas: Normal density, no abnormal calcifications or inflammatory process. There is a 2 mm calcifi cation in the head of the pancreas adjacent to or within the common duct. (Series 3, image 318). Spleen: Splenomegaly. 14.8 cm in length. Kidneys: Normal size, contour and axis.No radiodense stones or obstructive uropathy. No masses seen. Adrenal glands: No mass is seen. Lymph nodes: Within normal limits. Abdominal Aorta: Abdominal portion non-dilated. Atherosclerosis. PELVIS: Bladder:Symmetric distention, no gross wall thickening. Bowel: No obstruction or bowel wall thickening. There is a moderate amount of stool throughout the co jose guadalupe. There is a normal appendix. Peritoneal cavity: No ascites, collection or mesenteric inflammatory response Reproductive organs: Within normal limits. Bones: Mild degenerative changes. Soft Tissues: Small fat containing umbilical hernia. IMPRESSION: 1. Cholelithiasis. No biliary ductal dilatation. Distended gallbladder. 2. 2 mm calcification in the head of the pancreas adjacent to or within the common duct. MRCP may be obtained for further evaluation. 3. Findings suggesting hepatic cirrhosis. Splenomegaly. 4. The findings were discussed with the emergency department on the date of the examination. RADIATION DOSE DELIVERED: Total DLP DATA REPOSITORY: All CT scans at this facility are submitted to the National Radiology Data Registry (NRDR) Dose Index Registry (DIR) with the [employer] (ACR). RADIATION OPTIMIZATION: All CT scans at this facility use at least one of these dose optimization te chniques: automated exposure control; mA and/or kV adjustment per patient size (includes targeted exa ms where dose is matched to clinical indication); or iterative reconstruction.
[2020-01-19] MEDS: Normal Saline 1,000 ML 150 ML IV ×2 (17:50→22:05)
--- NOTE | 2020-01-19 17:57 | HPE_ITS ---
Date of service: 01/19/20 Time of Service: 17:57 Assessment and Plan Assessment and plan (1) Intractable nausea and vomiting: Start date: 01/19/20 Status: Acute Assessment and plan: This is a 44-year-old lady with intractable nausea and vomiting which may be secondary to some opiate withdrawal with patient self weaning off Suboxone with no medical follow-up to continue this treatment at this time. She appears to be responding to IV Reglan and sublingual Ativan with IV hydration for dehydration and metabolic acidosis. We will continue IV fluids overnight and advance to clear liquids as tolerated. Follow-up labs in the morning. The patient does have cholelithiasis but does not appear to have acute gallbladder symptoms with surgical consultation if she has recurrent abdominal pain associated with her nausea vomiting. Her gallbladder issue can be worked up further as an outpatient. (2) Moderate opioid dependence on maintenance therapy: Status: Chronic Assessment and plan: Patient needs follow-up for outpatient care to be established in the morning with a better plan of chronic Suboxone treatment and counseling for opioid abuse which appears to be polysubstance abuse at this time. (3) HTN (hypertension): Status: Chronic Assessment and plan: Patient states she had been clonidine and this will be restarted for blood pressure but also treating some of her anxiety with probable opiate withdrawal. This can be adjusted short-term for blood pressure control. She will need better follow-up as an outpatient. Qualifiers: Hypertension type: essential hypertension Qualified Code(s): I10 - Essential (primary) hypertension (4) Diabetes type 2, controlled: Status: Chronic Assessment and plan: Patient states she has not been on metformin or any treatment in recent past and we will follow glucometers with insulin coverage for now. We will check her hemoglobin A1c. She needs to establish with a local PCP for monitoring treatment of this problem. Qualifiers: Diabetes mellitus complication status: without complication Diabetes mellitus senior living insulin use: without senior living use Qualified Code(s): E11.9 - Type 2 diabetes mellitus without complications History of Present Illness History of Present Illness Chief Complaint: Intractable vomiting with nausea and upper abdominal pain for 2 days Narrative: This is a 44-year-old lady who recently incarcerated and then sent to [facility] for rehabilitation of opioid abuse. Patient was discharged on Suboxone and other medications but was only given 3 days supply. She was unable to establish with local physician and states that she had been on clonidine in the past for blood pressure but this had since stopped. She had also had been on metformin in the past but this too had been stopped during her incarceration and rehabilitation. She was unable to establish with a local clinic and was self weaning off Suboxone with no other medications. She does admit to smoking pipe with marijuana a day or 2 prior to admission and her urine drug screen from the ED did test positive for cocaine. It was not positive for THC. She had upper abdominal pain beginning 2 days prior to admission but no radiation into her back or shoulders and was associate with some bloating with associated nausea and vomiting. After 2 days of nausea and vomiting she reported to the ED was found to have dehydration with metabolic acidosis without having been on metformin recently. She also had mild hyperglycemia. Her blood pressure was uncontrolled having been off medical therapy. Imaging did reveal some cholelithiasis with no signs of obstruction but an enlarged gallbladder without signs of cholecystitis. At the time of the patient she was not having abdominal discomfort and was less nauseated with n.p.o. status and IV hydration along with IV Reglan and sublingual Ativan. She did ask be advanced on clear liquids which will be done. She was admitted for observation because of uncontrolled emesis nausea in the ED despite aggressive IV hydration and IV Phenergan, Zofran and Ativan. Review of Systems Narrative: 13 point review of systems otherwise unrevealing with patient having chaotic social status and no local physician for consistent medical therapy. She also has a variable history with her explanation of positive cocaine from smoking a dirty marijuana pipe but having no positive THC in her urine. [facility] Medical History (Updated 01/19/20 @ 23:26 by Andry Michelle) Diabetes type 2, controlled (Chronic) HTN (hypertension) (Chronic) Moderate opioid dependence on maintenance therapy (Chronic) Surgical History (Updated 01/19/20 @ 23:05 by Andry Michelle) Status post open reduction with internal fixation (ORIF) of fracture of ankle (Acute) Left Social History Smoking/Tobacco Use Status: Current every day Alcohol Intake: never Drug use: Current Sobriety Substance use type: heroin Details: 8 bags/day IVDA---comming off Buprenorphine--unknown dose Do you feel safe at home: Yes Do you feel safe in your relationship?: Yes Meds Home Medications and Allergies Home Medications Medication Instructions Recorded Confirmed Type blood sugar diagnostic [Accu-Chek #20 each 05/01/18 Rx Guide test strips] blood-glucose meter [Accu-Chek #1 each 05/01/18 Rx Guide Glucose Meter] lancets [Lancets, Super Thin] #50 each 05/01/18 Rx metformin 500 mg PO BID #30 tab 05/01/18 Rx buprenorphine HCl mcg BUCCAL 01/19/20 History Allergies Allergy/AdvReac Type Severity Reaction Status Date / Time codeine [Codeine] Allergy facial Unverified 01/19/20 09:11 swelling/rash Exam Narrative Exam Narrative: General: Patient appears older than stated age, flattened affect but good eye contact with pressured speech. She is alert and oriented x3. Moderate distress from her dry mouth and recent emesis making her feel sore though she has no distress from nausea or abdominal pain presently. HEENT: Normocephalic, eyes with pupils were and reactive to light symmetrically, sclera anicteric and extraocular intact. Oropharynx with dry mucosa and patient being edentulous. Nose without lesions. External ears without lesions. Neck: Supple without JVD. Back: Stooped posture with no CVA tenderness. Lungs: Fair aeration with bronchovesicular breath sounds diffusely, localizing rales or rhonchi and no expiratory wheeze. Breast: Exam deferred. Heart: Regular rate and rhythm with 3/6 pansystolic murmur auscultated over the left femoral border and apex. No rubs or gallops. Abdomen: Obese contour, soft and nontender to palpation with negative Patricia sign. Bowel sounds positive in all quadrants. Genital/rectal: Exam deferred. Extremities: Nonpitting edema over lower extremities with peripheral pulses intact, all joints with fair eye motion, no clubbing or cyanosis. Well-healed scar over left lateral ankle. Skin: Normal color, warm and dry with no rashes noted except for neurodermatitis excoriation scars over the face and upper extremities. Neuro: Cranial nerves II through XII grossly intact, no focalizing motor deficits. Psych: Anxious with pressured speech but normal thought processes. She does have vagueness when describing her social history and drug use with inconsistencies. There may be some denial. Remote and recent memory intact. Results Imaging Imaging Studies: EXAM: US ABDOMEN LIMITED CLINICAL HISTORY: vomiting, elevated bilirubin. Evaluate RUQ please TECHNIQUE: Ultrasound abdomen performed using standard protocol. COMPARISON: No exams were available for comparison FINDINGS: IVC: Visualized portions normal caliber. PANCREAS: Normal where visualized. LIVER: 19.7 cm in length. There is a lobulated contour of the liver suggesting hepatic cirrhosis. Hepatopedal flow in the Portal Vein. GALLBLADDER: 0.9 cm mobile gallstone. No evidence of wall thickening. No pericholecystic fluid identified. Distended gallbladder measuring 4.2 cm in diameter. BILIARY SYSTEM: Common bile duct measures 3.1 mm. No intrahepatic biliary ductal dilation. PATRICIA'S SIGN: Negative. KIDNEYS: Right kidney is unremarkable. No evidence of renal calculi. No evidence of hydronephrosis. No renal mass or cyst identified. IMPRESSION: 1. Cholelithiasis. No findings to suggest acute cholecystitis. No biliary ductal dilatation. 2. Hepatomegaly and findings suggestive of hepatic cirrhosis. 3. The findings were discussed with the emergency department on the date of the examination. DATA REPOSITORY: Ordered By: Gagandeep Banks M.D. CC: Dictated By: Jonatan Cook M.D. 01/19/20 1333 EXAM: CT ABDOMEN PELVIS WO CLINICAL HISTORY: vomiting, poor access (EJ), hx IVDU. TECHNIQUE: Imaging Protocol: Axial computed tomography images with coronal and sagittal reformatted images were created and reviewed. COMPARISON: US US ABDOMEN LIMITED from 01/19/2020 FINDINGS: ABDOMEN: Lung Bases: Normal where visualized. Liver: Normal density. No measurable mass. There is a lobulated contour to the liver consistent with hepatic cirrhosis. Gallbladder and biliary tract: Single gallstone visualized. Distended gallbladder with a diameter 4.7 cm. No biliary ductal dilatation. Pancreas: Normal density, no abnormal calcifications or inflammatory process. There is a 2 mm calcification in the head of the pancreas adjacent to or within the common duct. (Series 3, image 318). Spleen: Splenomegaly. 14.8 cm in length. Kidneys: Normal size, contour and axis.No radiodense stones or obstructive ur opathy. No masses seen. Adrenal glands: No mass is seen. Lymph nodes: Within normal limits. Abdominal Aorta: Abdominal portion non-dilated. Atherosclerosis. PELVIS: Bladder:Symmetric distention, no gross wall thickening. Bowel: No obstruction or bowel wall thickening. There is a moderate amount of stool throughout the colon. There is a normal appendix. Peritoneal cavity: No ascites, collection or mesenteric inflammatory response Reproductive organs: Within normal limits. Bones: Mild degenerative changes. Soft Tissues: Small fat containing umbilical hernia. IMPRESSION: 1. Cholelithiasis. No biliary ductal dilatation. Distended gallbladder. 2. 2 mm calcification in the head of the pancreas adjacent to or within the common duct. MRCP may be obtained for further evaluation. 3. Findings suggesting hepatic cirrhosis. Splenomegaly. 4. The findings were discussed with the emergency department on the date of the examination. RADIATION DOSE DELIVERED: Total DLP DATA REPOSITORY: All CT scans at this facility are submitted to the National Radiology Data Registry (NRDR) Dose Index Registry (DIR) with the [employer] (ACR). RADIATION OPTIMIZATION: All CT scans at this facility use at least one of these dose optimization techniques: automated exposure control; mA and/or kV adjustment per patient size (includes targeted exams where dose is matched to clinical indication); or iterative reconstruction. [id number]: Total DLP = 0.00 mGy-cm Ordered By: Gagandeep Banks M.D. CC: Dictated By: Jonatan Cook M.D. 01/19/20 1523 EXAM: 2D digital imaging was performed. CLINICAL HISTORY: vomiting. COMPARISON: No exams were available for comparison TECHNIQUE: Supine and uprightSupine and Lateral views of the abdomen was performed. FINDINGS: LUNG BASES: No focal consolidating infiltrates. BOWEL GAS PATTERN: Large amount of retained stool consistent with constipation. No evidence of obstruction. FREE AIR: None. CALCIFICATIONS: No radiopaque calcifications. OSSEOUS STRUCTURES: Normal for age. OTHER FINDINGS: None. IMPRESSION: Constipation. DATA REPOSITORY: RADIATION DOSE DELIVERED: Ordered By: Gagandeep Banks M.D. CC: Dictated By: Jonatan Cook M.D. 01/19/20 1202 Labs Result diagrams: 01/19/20 10:20 01/19/20 10:20 Labs: Laboratory Results - last 24 hr 01/19/20 01/19/20 10:20 10:20 WBC 12.82 H RBC 5.51 H Hgb 15.3 Hct 43.9 MCV 79.7 L MCH 27.8 MCHC 34.9 RDW 13.9 Plt Count 215 MPV 11.3 H Immature Gran % 0.2 Neutrophils % 72.0 Lymphocytes % 21.5 Monocytes % 4.8 Eosinophils % 1.3 Basophils % 0.2 Absolute Neutrophils 9.23 H Absolute Lymphocytes 2.76 Absolute Monocytes 0.62 Absolute Eosinophils 0.17 Absolute Basophils 0.03 Differential Comment Plt morph reviewed Poikilocytosis 1+ Sodium 139 Potassium 4.2 Chloride 101 Carbon Dioxide 19.3 L Anion Gap 18.7 H BUN 15 Creatinine 0.85 Estimated GFR/1.73 m2 >= 60.00 Glucose 237 H Calcium 9.4 Magnesium 1.9 Total Bilirubin 1.7 H AST 55 H ALT 50 Alkaline Phosphatase 73 Total Protein 8.4 H Albumin 4.0 Lipase 128 Last Vital Signs Temp 36.1 C L 01/19/20 09:06 Pulse 67 01/19/20 17:01 Resp 15 01/19/20 17:10 BP 177/86 H 01/19/20 17:01 Pulse Ox 100 01/19/20 17:10 COVID-19 Screening Have you,or household,traveled outside [place] in last 14 days?: No Had IN PERSON contact w/suspected or confirmed C-19 person: No
[2020-01-19 18:40] LABS: Bilirubin Small (Negative); Blood Large (Negative); Clarity Clear (Clear); Glucose 100 mg/dL (Negative); Ketones >=160 mg/dL (Negative); Leukocyte Esterase Negative (Negative); Nitrite Negative (Negative); Specific Gravity >= 1.030 (1.005-1.025)
[2020-01-19 18:47] LABS: WBC 0-2 HPF (0-5)
[2020-01-19 18:48] LABS: Bacteria Rare HPF (Negative); C & S Indicated? Yes; Casts Negative LPF (Negative); Crystals Negative HPF (Negative); Epithelial Cells Few HPF (Negative); Mucus Negative (Negative)
[2020-01-19] MEDS: Metoclopramide 10 MG/2 ML VIAL IVP (18:55)
[2020-01-19] MEDS: Heparin 5,000 UNITS/ML VIAL 5000 UNITS SC (18:57)
[2020-01-19 19:36] LABS: *AMPHETAMINES SCREEN URINE Negative (Negative); *BARBITURATES SCREEN URINE Negative (Negative); *BENZODIAZEPINES SCREEN URINE Negative (Negative); Cannabinoids THC Negative (Negative); Cocaine Screen,Urine POSITIVE (Negative); METHADONE URINE SCREEN Negative (Negative); OPIATES URINE SCREEN Negative (Negative)
[2020-01-19 19:38] LABS: Tricyclic Antidepressants Negative (Negative)
[2020-01-19 20:50] LABS: INR 1.1 (0.9-1.1); Prothrombin Time 11.2 sec (9.3-11.0)
[2020-01-19] MEDS: cloNIDine 0.1 MG TAB 0.2 MG PO (23:21)
[2020-01-19] MEDS: LORazepam 1 MG TAB PO/SL (23:26)
[2020-01-20] MEDS: Heparin 5,000 UNITS/ML VIAL 5000 UNITS SC ×3 (02:29→18:31)
[2020-01-20] MEDS: Metoclopramide 10 MG/2 ML VIAL IVP (04:12)
[2020-01-20] MEDS: Normal Saline 1,000 ML 150 ML IV ×4 (04:18→23:36)
[2020-01-20 04:19] VITALS: BP 145/78; PULSE 89; RESP 16; TEMP 37; O2SAT 98
[2020-01-20 07:29] VITALS: BP 178/97; PULSE 91; RESP 20; TEMP 37; O2SAT 100
[2020-01-20 07:53] LABS: HCT 41.8 % (36.0-46.0); HGB 14.5 g/dL (12.0-15.5); Mean Corp. HGB Concentration 34.7 g/dL (32.0-36.0); Mean Corpuscular Volume 80.7 fL (80-95); Mean Platelet Volume 10.7 fL (8.0-11.0); Platelet Count 203 x1000/uL (130-400); RBC 5.18 m/cumm (4.00-5.20); RBC Distribution Width 13.7 % (11.7-14.6); White Blood Cell Count 13.61 k/cumm (4.4-10.8)
--- NOTE | 2020-01-20 07:55 | INITIAL_ITS ---
- If Service Date Differs Date of service: 01/20/20 Time of Service: 07:56 Care Management Initial Assess REASON FOR HOSPITALIZATION:: Intractable Emesis PAST MEDICAL HISTORY/PAST SURGICAL HISTORY:: DM, HTN, Opiod dependency not currently receiving treatment servcies (01/20/20) PREVIOUS FUNCTIONAL STATUS/SOCIAL/FAMILY SUPPORTS:: Kathi has 5 children that live local, she has three adult children and two minors. Her youngest is 8 years old and is in the permanant custody of [facility]. Kathi states she is living in the local [facility]. She describes no support system, she states that she is disabled r/t to her mental health. She was to start Intensive outpatient treatment through [facility] however she missed her appointment yesterday. She does not have transportation, she states she does not have friends locally and does not use [facility] at this time. She was recently incarcerated and transition to [facility] for substance use treatment and rehabilitation. She was transition to a [facility] program in [place] however she failed to show and was dismissed from the program. Kathi is indepdent with ADL's and care for herself she does not use any assisted devices at baseline. CURRENT FUNCTIONAL STATUS:: Kathi is drowsey during assessment, she does engage during CM assessment. She describes recent events prior to admission, however it is difficult to follow her timeline. It appears she was released from senior living in October dirrectly to [facility] for about 4 weeks, she states from there she was placed at the [facility] in [place], [place]. She states she was enrolled at [facility] in [place], [place] but was dismissed for a missed appointment. She did not want to return to [facility] as she knows many people and felt that it would be a trigger for her. Today she is willing to establish care at [facility], she signed a consent for this CM to assist with services, she states she would also like a primary care provider, she has not been able to establish on her own. She is willing to participate with [facility]. Kathi feels confident and states her goal is access to treatment. She understands how to access housing and has been able to meet with economic services for her renewell every two weeks. ADVANCE DIRECTIVES:: None on file not completed at this time, CM will offer the forms and assitance if needed. Has patient been provided with info about the portal/API?: Yes Did the patient sign up for the portal?: No CODE STATUS:: Full Code INSURANCE COVERAGE / FINANCIAL ISSUES:: Medicare, Medicaid CURRENT HOME/COMMUNITY SERVICES/EQUIPMENT:: No current services, at this time. Referrals to [facility], SUSAN, new PCP. PRIMARY CARE PHYSICIAN:: Referring to local PCP at [facility] as Peggy Wylie was telephone provider POTENTIAL DISCHARGE NEEDS:: Follow up appointment with [facility] as the provider psychologist personnel, referrals as reviewed. Transportation home via [facility]. PATIENT/FAMILY EDUCATION NEEDS:: Discharge education, limitations and follow up plan of care including ask me three and self management. ANTICIPATED BARRIERS TO DISCHARGE:: Access to services, including addiction services. TRANSPORTATION:: Via [facility] at time of discharge. PLAN:: Kathi is currently receiving IV fluids and replacement K+. She is tolerating a clear liquid diet. Anticipate she will be discharged when medically cleared.
[2020-01-20] MEDS: LORazepam 1 MG TAB PO/SL (08:04)
[2020-01-20] MEDS: cloNIDine 0.1 MG TAB 0.2 MG PO ×3 (08:04→20:17)
[2020-01-20 08:15] LABS: ALT 37 U/L (14-59); AST 37 U/L (15-37); Albumin 3.3 g/dL (3.4-5.0); Alkaline Phosphatase 60 U/L (46-116); Anion Gap 12.3 mmol/L (3-11); BUN 11 mg/dL (7-18); Bilirubin, Total 1.2 mg/dL (0.2-1.0); CO2 20.7 mmol/L (21.0-32.0); CREATININE 0.71 mg/dL (0.55-1.02); Calcium 7.6 mg/dL (8.5-10.1); Chloride 105 mmol/L (98-107); Glucose 173 mg/dL (74-106); Potassium 3.1 mmol/L (3.5-5.1); Sodium 138 mmol/L (136-145); Total Protein 7.6 g/dL (6.4-8.2)
[2020-01-20 08:23] LABS: Hemoglobin A1C 9.4 % (3.8-5.6)
[2020-01-20] MEDS: Insulin Aspart 300 UNITS/3 ML PEN SC (09:08)
[2020-01-20] MEDS: Docusate Sodium 100 MG CAP PO ×2 (09:08→20:17)
[2020-01-20 09:41] LABS: Procalcitonin < 0.1 ng/mL
[2020-01-20] MEDS: Normal Saline Flush 10 ML SYR IVP (10:15)
[2020-01-20] MEDS: Pantoprazole 40 MG VIAL IVP (10:16)
[2020-01-20] MEDS: POTASSIUM CHLORIDE 20 MEQ/100 ML BAG 50 MEQ IVPB ×2 (10:16→12:32)
[2020-01-20 11:36] VITALS: BP 122/77; PULSE 99; RESP 19; TEMP 36.5; O2SAT 100
[2020-01-20 14:40] LABS: COVID-19 RT-PCR UVMMC Result Negative (Negative)
[2020-01-20 15:36] VITALS: BP 136/85; PULSE 78; RESP 16; TEMP 36.2; O2SAT 99
--- NOTE | 2020-01-20 16:14 | PHA.REVIEW ---
Pharmacy Admission Review - Admission Clinical Review (Last Updated 01/19/20 @ 23:04 by Andry Michelle) Intractable nausea and vomiting (Acute) Constipation (Acute) Vomiting (Acute) codeine [Codeine] Allergy (Unverified 01/19/20 09:11) facial swelling/rash Height 5 ft 1 in Weight 83.3 kg - Renal Dosing Renal Dosing: BUN 11 mg/dL (7-18) 01/20/20 07:34 Creatinine 0.71 mg/dL (0.55-1.02) 01/20/20 07:34 Medications needing adjustments: Reviewed - Anticoagulation Anticoagulation: Hgb 14.5 g/dL (12.0-15.5) 01/20/20 07:34 Hct 41.8 % (36.0-46.0) 01/20/20 07:34 Plt Count 203 x1000/uL (130-400) 01/20/20 07:34 INR 1.1 (0.9-1.1) 01/19/20 20:25 Creatinine 0.71 mg/dL (0.55-1.02) 01/20/20 07:34 DVT Prohphylaxis: N/A Therapeutic Anticoagulation: N/A - Opiate Usage Evaluate Pain Scale/Pains Meds: N/A Scheduled Bowel Reg ordered if on Opiates?: Yes (PRN) - Relevant Labs Sodium 138 mmol/L (136-145) 01/20/20 07:34 Potassium 3.1 mmol/L (3.5-5.1) L D 01/20/20 07:34 Chloride 105 mmol/L (98-107) 01/20/20 07:34 Magnesium 1.9 mg/dL (1.8-2.4) 01/19/20 10:20 C-Reactive Protein 0.50 mg/dL (0.0-0.3) H 01/20/20 07:34 Electrolytes, C-Reactive P, ESR: Reviewed (k+ repleted) - DM Control DM Control: Glucose 173 mg/dL (74-106) H 01/20/20 07:34 Hemoglobin A1c 9.4 % (3.8-5.6) H 01/20/20 07:34 Finger Stick Blood Glucose 133 Finger Stick Blood Glucose 133 Finger Stick Blood Glucose 155 Insulin Dosing: Reviewed (aspar per SS) - Heart Failure/HI EF%, JACIEL's, B-Blockers, Diuretics: Reviewed - BP Control BP Control: Blood Pressure 136/85 Blood Pressure 122/77 Blood Pressure 178/97 Blood Pressure 145/78 If elevated: Reviewed List meds needing interventions: clonidine ordered but does not have PCP so uknown hx of BP meds - Qtc Review If Elevated: N/A - IV to PO Switch IV Medications: Reviewed - Home Meds Home Med List reviewed: Reviewed Relevent Home Meds Not ordered & why?: metformin - aspart per SS ordered - Current meds Current Medication Order Review: Reviewed - Comments Comments/Follow Ups: ADAM reached out to [facility] and the provider their recommended to start patient with 4mg of suboxone now with an additional 4mg 1 hour later (~1700 and 1800) and then give 12mg tomorrow. ADAM has made appt for pt with [facility] on Saturday.
[2020-01-20] MEDS: Buprenorphine/Naloxone 4 mg/1 mg FILM 1 EACH SL ×2 (16:57→18:31)
--- NOTE | 2020-01-20 18:00 | W.PM.PROGNOT ---
Date of Service Date of service: 01/20/20 Time of Service: 18:00 Assessment and Plan Assessment and plan (1) Intractable nausea and vomiting: Status: Acute Assessment and plan: Appears to be due to opioid withdrawal. Improved. Tolerating clears. Plan to advance diet as tolerated. Continue symptomatic management of opioid withdrawal - also, reintroducing outpatient suboxone with JOSETTE's guidance. (2) Dehydration: Status: Acute Assessment and plan: Continue IVF (3) Moderate opioid dependence on maintenance therapy: Status: Chronic Assessment and plan: As above (4) HTN (hypertension): Status: Chronic Assessment and plan: Continue clonidine Qualifiers: Hypertension type: essential hypertension Qualified Code(s): I10 - Essential (primary) hypertension (5) Diabetes type 2, controlled: Status: Chronic Assessment and plan: A1C of 9.4. Continue SSI. Will assess insulin requirements prior to making decisions on outpatient therapy. So far, the patient has required 1 unit of insulin in the hospital, but her PO intake has not been the best. Qualifiers: Diabetes mellitus parts counterman insulin use: without halfway use Diabetes mellitus complication status: without complication Qualified Code(s): E11.9 - Type 2 diabetes mellitus without complications (6) Constipation: Status: Acute Assessment and plan: Intensify bowel regimen. (7) DVT prophylaxis: Status: Acute Assessment and plan: Sc heparin (8) Discharge planning issues: Status: Acute Assessment and plan: Full code Subjective Subjective Interval history since last seen: Ms Sykes states that her nausea is better. She complains of constipation. Denies dizziness, chest pain, shortness of breath, nausea. JOSETTE recommends starting the patient on suboxone here with them taking over prescribing on Saturday. Dose recommendations were made. Exam Narrative Exam Narrative: General: very pleasant middle-aged female HEENT: EOMI, dry MM Heart: RRR, no m/r/g Lungs: CTAB Abdomen: soft, nontender, nondistended Extremities: no e/c/c BLE's Objective Objective Clinical Data: Abnormal lab results 01/19/20 01/19/20 01/19/20 Range/Units 18:30 18:30 20:25 WBC (4.4-10.8) k/cumm PT 11.2 H (9.3-11.0) sec Potassium (3.5-5.1) mmol/L Carbon Dioxide (21.0-32.0) mmol/L Anion Gap (3-11) mmol/L Glucose (74-106) mg/dL Hemoglobin A1c (3.8-5.6) % Calcium (8.5-10.1) mg/dL Total Bilirubin (0.2-1.0) mg/dL C-Reactive Protein (0.0-0.3) mg/dL Albumin (3.4-5.0) g/dL Ur Specific [place] >= 1.030 H (1.005-1.025) Urine Protein 30 H (Negative) mg/dL Urine Ketones >=160 H (Negative) mg/dL Urine Blood Large H (Negative) Urine Bilirubin Small H (Negative) Urine Urobilinogen 2.0 H (Up TO 0.2) EU/dL Urine RBC 10-20 H (0-2) HPF Urine Cocaine Screen Positive A (Negative) 01/20/20 01/20/20 01/20/20 Range/Units 07:34 07:34 07:34 WBC 13.61 H (4.4-10.8) k/cumm PT (9.3-11.0) sec Potassium 3.1 L D (3.5-5.1) mmol/L Carbon Dioxide 20.7 L (21.0-32.0) mmol/L Anion Gap 12.3 H (3-11) mmol/L Glucose 173 H (74-106) mg/dL Hemoglobin A1c 9.4 H (3.8-5.6) % Calcium 7.6 L (8.5-10.1) mg/dL Total Bilirubin 1.2 H (0.2-1.0) mg/dL C-Reactive Protein (0.0-0.3) mg/dL Albumin 3.3 L (3.4-5.0) g/dL Ur Specific [place] (1.005-1.025) Urine Protein (Negative) mg/dL Urine Ketones (Negative) mg/dL Urine Blood (Negative) Urine Bilirubin (Negative) Urine Urobilinogen (Up TO 0.2) EU/dL Urine RBC (0-2) HPF Urine Cocaine Screen (Negative) 01/20/20 Range/Units 07:34 WBC (4.4-10.8) k/cumm PT (9.3-11.0) sec Potassium (3.5-5.1) mmol/L Carbon Dioxide (21.0-32.0) mmol/L Anion Gap (3-11) mmol/L Glucose (74-106) mg/dL Hemoglobin A1c (3.8-5.6) % Calcium (8.5-10.1) mg/dL Total Bilirubin (0.2-1.0) mg/dL C-Reactive Protein 0.50 H (0.0-0.3) mg/dL Albumin (3.4-5.0) g/dL Ur Specific [place] (1.005-1.025) Urine Protein (Negative) mg/dL Urine Ketones (Negative) mg/dL Urine Blood (Negative) Urine Bilirubin (Negative) Urine Urobilinogen (Up TO 0.2) EU/dL Urine RBC (0-2) HPF Urine Cocaine Screen (Negative) Vital Signs Temperature 36.2 C L 01/20/20 15:36 Temperature Source Tympanic 01/20/20 15:36 Pulse 78 01/20/20 15:36 Pulse Rhythm Regular 01/20/20 14:00 Pulse 88 01/19/20 18:30 Respiratory Rate 16 01/20/20 15:36 Respiratory Effort 01/20/20 14:00 Respiratory Depth Normal 01/20/20 14:00 Respiratory Pattern Normal 01/20/20 14:00 Blood Pressure 136/85 01/20/20 15:36 Blood Pressure Mean 81 01/19/20 18:03 Blood Pressure Position Sitting 01/19/20 09:06 Pulse Oximetry 99 01/20/20 15:36 Oxygen Delivery Method Room Air 01/20/20 15:36 Oxygen Flow Rate 0 01/20/20 15:36 Pain Level 0 01/20/20 15:36 Intake & Output 01/19/20 01/20/20 01/20/20 23:59 11:59 23:59 Intake Total 1938.0 / 2948.0 2040.0 / 2140.0 100 / 0.0 Output Total 300 / 800 150 / 150 Balance 1638.0 / 2148.0 189.0 / 1989.0 1989.0 Weight 81.647 kg 83.3 kg Intake: IV 1938.0 / 2948.0 1830.0 / 1930.0 100 / 1929.0 Oral 210 / 210 Output: Urine 150 / 150 Emesis 300 / 800 Other: Urine Color [place] Urine Appearance Clear Clear Urine Odor Normal Emesis Description Retching Bile Gastric Occult Blood Positive Voiding Methods Bedside Commode Laboratory Results WBC 13.61 k/cumm (4.4-10.8) H 01/20/20 07:34 RBC 5.18 m/cumm (4.00-5.20) 01/20/20 07:34 Hgb 14.5 g/dL (12.0-15.5) 01/20/20 07:34 Hct 41.8 % (36.0-46.0) 01/20/20 07:34 MCV 80.7 fL (80-95) 01/20/20 07:34 MCH 28.0 pg (27.0-33.0) 01/20/20 07:34 MCHC 34.7 g/dL (32.0-36.0) 01/20/20 07:34 RDW 13.7 % (11.7-14.6) 01/20/20 07:34 Plt Count 203 x1000/uL (130-400) 01/20/20 07:34 MPV 10.7 fL (8.0-11.0) 01/20/20 07:34 Immature Gran % 0.2 % 01/19/20 10:20 Neutrophils % 72.0 01/19/20 10:20 Lymphocytes % 21.5 01/19/20 10:20 Monocytes % 4.8 01/19/20 10:20 Eosinophils % 1.3 01/19/20 10:20 Basophils % 0.2 01/19/20 10:20 Absolute Neutrophils 9.23 k/cumm (1.2-6.7) H 01/19/20 10:20 Absolute Lymphocytes 2.76 k/cumm (1.2-3.4) 01/19/20 10:20 Absolute Monocytes 0.62 k/cumm (0.11-0.7) 01/19/20 10:20 Absolute Eosinophils 0.17 k/cumm (0.0-0.7) 01/19/20 10:20 Absolute Basophils 0.03 k/cumm (0.0-0.2) 01/19/20 10:20 Differential Comment Plt morph reviewed 01/19/20 10:20 Poikilocytosis 1+ 01/19/20 10:20 PT 11.2 sec (9.3-11.0) H 01/19/20 20:25 INR 1.1 (0.9-1.1) 01/19/20 20:25 Sodium 138 mmol/L (136-145) 01/20/20 07:34 Potassium 3.1 mmol/L (3.5-5.1) L D 01/20/20 07:34 Chloride 105 mmol/L (98-107) 01/20/20 07:34 Carbon Dioxide 20.7 mmol/L (21.0-32.0) L 01/20/20 07:34 Anion Gap 12.3 mmol/L (3-11) H 01/20/20 07:34 BUN 11 mg/dL (7-18) 01/20/20 07:34 Creatinine 0.71 mg/dL (0.55-1.02) 01/20/20 07:34 Estimated GFR/1.73 m2 >= 60.00 (mL/min/1.73m2) 01/20/20 07:34 Glucose 173 mg/dL (74-106) H 01/20/20 07:34 Hemoglobin A1c 9.4 % (3.8-5.6) H 01/20/20 07:34 Calcium 7.6 mg/dL (8.5-10.1) L 01/20/20 07:34 Magnesium 1.9 mg/dL (1.8-2.4) 01/19/20 10:20 Total Bilirubin 1.2 mg/dL (0.2-1.0) H 01/20/20 07:34 AST 37 U/L (15-37) 01/20/20 07:34 ALT 37 U/L (14-59) 01/20/20 07:34 Alkaline Phosphatase 60 U/L (46-116) 01/20/20 07:34 C-Reactive Protein 0.50 mg/dL (0.0-0.3) H 01/20/20 07:34 Total Protein 7.6 g/dL (6.4-8.2) 01/20/20 07:34 Albumin 3.3 g/dL (3.4-5.0) L 01/20/20 07:34 Lipase 128 U/L (73-393) 01/19/20 10:20 Procalcitonin < 0.1 ng/mL 01/20/20 07:34 Urine Color Yellow (Yellow) 01/19/20 18:30 Urine Clarity Clear (Clear) 01/19/20 18:30 Urine pH 6.0 (5-8) 01/19/20 18:30 Ur Specific [place] >= 1.030 (1.005-1.025) H 01/19/20 18:30 Urine Protein 30 mg/dL (Negative) H 01/19/20 18:30 Urine Ketones >=160 mg/dL (Negative) H 01/19/20 18:30 Urine Blood Large (Negative) H 01/19/20 18:30 Urine Nitrite Negative (Negative) 01/19/20 18:30 Urine Bilirubin Small (Negative) H 01/19/20 18:30 Urine Urobilinogen 2.0 EU/dL (Up TO 0.2) H 01/19/20 18:30 Ur Leukocyte Esterase Negative (Negative) 01/19/20 18:30 Urine RBC 10-20 HPF (0-2) H 01/19/20 18:30 Urine WBC 0-2 HPF (0-5) 01/19/20 18:30 Ur Epithelial Cells Few HPF (Negative) 01/19/20 18:30 Urine Crystals Negative HPF (Negative) 01/19/20 18:30 Urine Bacteria Rare HPF (Negative) 01/19/20 18:30 Urine Casts Negative LPF (Negative) 01/19/20 18:30 Urine Mucus Negative (Negative) 01/19/20 18:30 Ur Culture Indicated? Yes 01/19/20 18:30 Urine Glucose 100 mg/dL (Negative) 01/19/20 18:30 Urine Opiates Screen Negative (Negative) 01/19/20 18:30 Urine Methadone Screen Negative (Negative) 01/19/20 18:30 Ur Barbiturates Screen Negative (Negative) 01/19/20 18:30 Ur Tricyclics Screen Negative (Negative) 01/19/20 18:30 Ur Amphetamines Screen Negative (Negative) 01/19/20 18:30 U Benzodiazepines Scrn Negative (Negative) 01/19/20 18:30 Urine Cocaine Screen Positive (Negative) A 01/19/20 18:30 Ur THC Screen Negative (Negative) 01/19/20 18:30 COVID-19 PCR Negative (Negative) 01/19/20 18:00 Nasopharyn COVID-19 PCR Not Applicable 01/19/20 18:00 Ref Test Perform Site [facility] 01/19/20 18:00
[2020-01-20] MEDS: Bisacodyl 5 MG TABEC 10 MG PO (18:31)
[2020-01-20] MEDS: Senna TAB 1 TAB PO (20:17)
[2020-01-20 20:55] VITALS: BP 122/67; PULSE 81; RESP 18; TEMP 36; O2SAT 98
[2020-01-20] MEDS: Nicotine 21 MG/24 HR PATCH TD (22:51)
[2020-01-20 23:39] VITALS: BP 126/83; PULSE 95; RESP 18; TEMP 36.8; O2SAT 100
[2020-01-21] MEDS: Heparin 5,000 UNITS/ML VIAL 5000 UNITS SC ×2 (01:23→10:51)
[2020-01-21] MEDS: LORazepam 1 MG TAB PO/SL ×2 (02:00→14:49)
[2020-01-21 03:53] VITALS: BP 147/79; PULSE 87; RESP 18; TEMP 36.5; O2SAT 98
--- NOTE | 2020-01-21 05:08 | PDOC.CMPRO ---
- If Service Date Differs Date of service: 01/21/20 Time of Service: 05:08 Care Management Progress Note S/O: Kathi was started on her Suboxone she will be discharged on Saturday and will start with JOSETTE on Saturday. Kathi is alert and engaged today she states she feels so much better. She continues to receive IV fluids and electrolyte replacement. ADAM contacted [facility] and scheduled a follow up appointment with Jamshid Irwin for 01/27/20 at 0940. ADAM is awaiting a consent from [facility] to have her sign to assist with transportation. Kathi is contacting [facility] to complete assessment for services through [facility]. A:44 year old female admitted with intractable vomiting, history of substance use and dependency P:Kathi will be discharged on Saturday. JOSETTE appointment scheduled for 01/23/20 at 0700. New primary care provider appointment for the at [facility] 01/27/20 at 0940. CM will continue to support patient during her stay and coordination of services. At time of discharge [facility] will need to be set up and she will need to stop at [facility] in [place] to obtain any new medications. She will need a last dose letter.
[2020-01-21] MEDS: Normal Saline 1,000 ML 150 ML IV ×3 (06:02→12:50)
[2020-01-21 06:48] LABS: Absolute Basophil Count 0.01 k/cumm (0.0-0.2); Absolute Eosinophil Count 0.09 k/cumm (0.0-0.7); Absolute Lymphocyte Count 2.35 k/cumm (1.2-3.4); Absolute Monocyte Count 0.33 k/cumm (0.11-0.7); Absolute Neutrophil Count 2.72 k/cumm (1.2-6.7); Basophils % 0.2; Eosinophils % 1.6; HCT 38.5 % (36.0-46.0); HGB 13.1 g/dL (12.0-15.5); Lymphocytes % 42.7; Mean Corpuscular Hemoglobin 27.9 pg (27.0-33.0); Mean Corpuscular Volume 81.9 fL (80-95); Neutrophils % 49.5; Platelet Count 143 x1000/uL (130-400); RBC Distribution Width 13.5 % (11.7-14.6)
[2020-01-21 07:03] LABS: Anion Gap 9.8 mmol/L (3-11); BUN 7 mg/dL (7-18); CO2 23.2 mmol/L (21.0-32.0); Calcium 7.6 mg/dL (8.5-10.1); Chloride 108 mmol/L (98-107); Glucose 139 mg/dL (74-106); Magnesium 1.7 mg/dL (1.8-2.4); Potassium 3.4 mmol/L (3.5-5.1); Sodium 141 mmol/L (136-145)
[2020-01-21 07:44] VITALS: BP 143/85; PULSE 99; RESP 17; TEMP 36.7; O2SAT 100
[2020-01-21 07:45] VITALS: O2SAT 100
[2020-01-21] MEDS: Docusate Sodium 100 MG CAP PO (07:50)
[2020-01-21] MEDS: Nicotine 21 MG/24 HR PATCH TD (07:50)
[2020-01-21] MEDS: Senna TAB 1 TAB PO (07:50)
[2020-01-21] MEDS: cloNIDine 0.1 MG TAB 0.2 MG PO ×2 (07:50→14:50)
[2020-01-21 08:26] LABS: Albumin 2.8 g/dL (3.4-5.0)
[2020-01-21] MEDS: Magnesium Oxide 400 MG TAB PO (08:57)
[2020-01-21] MEDS: MAGNESIUM SULFATE 2 GM/50 ML BAG IVPB (08:57)
[2020-01-21] MEDS: POTASSIUM CHLORIDE 20 MEQ/100 ML BAG 50 MEQ IVPB ×2 (10:50→12:51)
[2020-01-21] MEDS: Normal Saline Flush 10 ML SYR IVP (10:51)
[2020-01-21] MEDS: Pantoprazole 40 MG VIAL IVP (10:51)
[2020-01-21] MEDS: Buprenorphine/Naloxone 12 mg/3 mg FILM 1 EACH SL (10:51)
[2020-01-21 11:35] VITALS: BP 156/97; PULSE 105; RESP 21; TEMP 37.4; O2SAT 98
--- NOTE | 2020-01-21 12:01 | DM INPTCON_ITS ---
Date of service: 01/21/20 Time of Service: 12:01 Diabetes Inpatient Consult DESCRIPTION/ASSESSMENT: 44 year old female admitted with dehydration, intractable nausea and vomiting with moderate opiod dependence on maintenace therapy with type 2 DM. Recent A1C: 9.4% (01/20/2020) indicating poorly controlled diabetes. BMI of 35 indicates class 2 obesity. Met with Kathi today, she reports she was incarcerated, did not take her metformin while incarcerated and recently gained 50 lbs while incarcerated. She requests glucometer, strips and DM meds when she discharges as she wants to get control of DM and health again. INTERVENTION: Provided education on DM including Hyper/hypoglycemia s/s with action plan for each scenario. Definition and types of CHO with examples, CHO counting, DASH diet materials, DM meal planning and label reading literature. Provided a blood sugar and food record chart and materials to reiterate CHO counting techniques. Reviewed desirable BG levels with patient with food choices and portions for optimal outcomes. Provided contact information for this RD and encouraged to call with any f/u questions r/t to DM self management. CDM from kitchen has been helping to count CHO's and achieve intake of ~65g/CHO per meal period. PLAN: Pt will need glucometer, stips, lancets and DM meds at discharge Pt will follow up with telegraphic typewriter operator if needs further information/nutritional counseling in OP setting. Time Spent in Nutritional Counseling and Treatment: 15 min spent face to face
--- NOTE | 2020-01-21 14:46 | DSE_ITS ---
Date of service: 01/21/20 Time of Service: 14:46 DS: Diagnosis Discharge Diagnosis (1) Intractable nausea and vomiting: Status: Acute (2) Dehydration: Status: Acute (3) Moderate opioid dependence on maintenance therapy: Status: Chronic (4) HTN (hypertension): Status: Chronic (5) Diabetes type 2, controlled: Status: Chronic (6) Constipation: Status: Acute (7) Obesity (BMI 30-39.9): Status: Acute (8) Hypokalemia: Status: Acute (9) Hypomagnesemia: Status: Acute (10) COVID-19 ruled out by laboratory testing: Status: Acute (11) Tobacco abuse: Status: Acute (12) Cholelithiasis: Status: Chronic (13) Hepatic cirrhosis: Status: Chronic Discharge Plan Disposition Patient Disposition: HOME Condition: Stable Discharge Details Chief Complaint: Nausea/Vomit/Diar Clinical Impression: Constipation, Vomiting Reason For Visit: INTRACTABLE EMESIS, DEHYDRATION Admit Date/Time: 01/20/20 18:05 Admit Provider: Andry Michelle Attending Provider: Andry Michelle Primary Care Provider: Jamshid Irwin ED Provider: Gagandeep Bansk Hospital Course Hospital Course: Ms Sykes is a 44 year old female with PMHx of diet-controlled DM2, hypertension, opioid dependence, obesity, who was admitted to [facility] hospitalist service on 01/19/2020 for intractable nausea and vomiting likely due to opioid withdrawal. She was treated with antiemetics and IVF and re- institution/continuation of her suboxone. She was able to tolerate a full liquid diet, though she did still have some nausea. She was set up with a new PCP and has an appointment with JOSETTE for continuation of her suboxone on Saturday at 7 am. She has one dose of 8 mg of suboxone until then - she realizes that I cannot prescribe her her normal outpatient dose on discharge and is willing to accept recurrence of symptoms. She was advised to return to the ED should she have intractable nausea and vomiting at home. Care for patient as well as completion of her discharge summary on day of discharge took 40 minutes. Home Meds and New Rx's Prescriptions: New sennosides [Senokot] 8.6 mg Tablet 1 tab PO BID Qty: 60 RF: 0 clonidine HCl [Catapres] 0.1 mg Tablet 0.2 mg PO TID Qty: 180 RF: 0 magnesium oxide 400 mg (241.3 mg magnesium) Tablet 400 mg PO DAILY Qty: 30 RF: 0 nicotine 21 mg/24 hr Patch 24 Hour 21 mg transdermal DAILY Qty: 30 RF: 0 docusate sodium [Colace] 100 mg Capsule 100 mg PO BID Qty: 60 RF: 0 bisacodyl 5 mg Tablet,Delayed Release (Dr/Ec) 10 mg PO DAILY PRN PRNQty: 10 RF: 0 pantoprazole [Protonix] 40 mg tablet,delayed release (DR/EC) 40 mg PO DAILY Qty: 30 RF: 0 sucralfate [Carafate] 1 gram tablet 1 gm PO QACHS Qty: 120 RF: 0 ondansetron 4 mg tablet,disintegrating 4 mg PO Q8H PRNQty: 10 RF: 0 Continued buprenorphine-naloxone [Suboxone] 8-2 mg Film 2 film sublingual DAILY RF: 0 metformin 500 mg tablet 500 mg PO BID Qty: 30 RF: 0 No Action (DME) blood-glucose meter [Accu-Chek Guide Glucose Meter] misc See Dose Instructions .ROUTE .MEDSUPPLY Qty: 1 RF: 0 (DME) blood sugar diagnostic [Accu-Chek Guide test strips] strip See Dose Instructions .ROUTE .MEDSUPPLY Qty: 20 RF: 0 (DME) lancets [Lancets, Super Thin] misc See Dose Instructions .ROUTE .MEDSUPPLY Qty: 50 RF: 0 Discharge Instructions Instructions: Sucralfate (By mouth), Ondansetron (By mouth), Pantoprazole (By mouth), Buprenorphine/Naloxone (Into the mouth), How to Stop Smoking (DC), Constipation (ED), Narcotic Withdrawal (DC) Additional Instructions: Return to the hospital with any fever, bleeding, chest pain, shortness of breath, or intractable nausea/vomiting. Follow up with your new PCP as below and JOSETTE on Saturday at 7 am. Try to stop smoking. Stand Alone Forms: Nursing Discharge Form Referrals: Jamshid Irwin [Primary Care Provider] - 01/27/20 9:40 am Activity:: Activity as Tolerated Equipment/Supplies:: No Equipment Needed Diet:: As Tolerated Discharge Orders Discharge Orders: Discharge Order (Routine); Ordered 01/21/20 Ordered By: Leandra Welch DS: Summary Status at Discharge Functional status at discharge: independent ambulation Overall status at discharge: patient is progressing back to baseline Mental Status: mental status grossly normal Speech and Movement: speech and movement normal Mood: congruent mood Affect: sad Exam Narrative Exam Narrative: General: very pleasant middle-aged female, crying HEENT: EOMI, MMM Heart: RRR, no m/r/g Lungs: CTAB Abdomen: soft, nontender, nondistended Extremities: no e/c/c BLE's Psych Mental Status: mental status grossly normal Speech and Movement: speech and movement normal Mood: congruent mood Affect: sad DS: Data Vitals/I&O Vitals and I&O: Vital Signs Temperature 37.4 C 01/21/20 11:35 Temperature Source Tympanic 01/21/20 11:35 Pulse 105 H 01/21/20 11:35 Pulse Rhythm Regular 01/21/20 07:45 Pulse 88 01/19/20 18:30 Respiratory Rate 21 01/21/20 11:35 Respiratory Effort Non-Labored 01/21/20 07:45 Respiratory Depth Normal 01/21/20 07:45 Respiratory Pattern Normal 01/21/20 07:45 Blood Pressure 156/97 H 01/21/20 11:35 Blood Pressure Mean 81 01/19/20 18:03 Blood Pressure Position Sitting 01/19/20 09:06 Pulse Oximetry 98 01/21/20 11:35 Oxygen Delivery Method Room Air 01/21/20 11:35 Oxygen Flow Rate 0 01/21/20 11:35 Pain Level 0 01/21/20 11:35 Intake & Output 01/20/20 01/21/20 01/21/20 23:59 11:59 23:59 Intake Total 2205 / 4245.0 2192.5 / 2685.0 492.5 / 2685.0 Output Total 1150 / 1300 600 / 600 Balance 1055 / 2945.0 1592.5 / 2085.0 492.5 / 2085.0 Weight 84.1 kg Intake: IV 1965 / 3795.0 1832.5 / 2085.0 252.5 / 2085.0 Oral 240 / 450 360 / 600 240 / 600 Output: Urine 1150 / 1300 600 / 600 Other: Urine Color Yellow Light Bette Urine Appearance Clear Clear Stool Size Small Stool Characteristics Soft Voiding Methods Bedside Commode Toilet Data Completed and Pending Completed studies during hospitalization [Text1]: XR abdomen: Constipation. US abdomen;1. Cholelithiasis. No findings to suggest acute cholecystitis. No biliary ductal dilatation. 2. Hepatomegaly and findings suggestive of hepatic cirrhosis. 3. The findings were discussed with the emergency department on the date of the examination. CT abdomen/pelvis w/o contrast; 1. Cholelithiasis. No biliary ductal dilatation. Distended gallbladder. 2. 2 mm calcification in the head of the pancreas adjacent to or within the common duct. MRCP may be obtained for further evaluation. 3. Findings suggesting hepatic cirrhosis. Splenomegaly. 4. The findings were discussed with the emergency department on the date of the examination. Labs on day of discharge: Labs from last 24 hours 01/21/20 01/21/20 06:10 06:10 WBC 5.50 D RBC 4.70 Hgb 13.1 Hct 38.5 MCV 81.9 MCH 27.9 MCHC 34.0 RDW 13.5 Plt Count 143 MPV 11.0 Immature Gran % 0.0 Neutrophils % 49.5 Lymphocytes % 42.7 Monocytes % 6.0 Eosinophils % 1.6 Basophils % 0.2 Absolute Neutrophils 2.72 Absolute Lymphocytes 2.35 Absolute Monocytes 0.33 Absolute Eosinophils 0.09 Absolute Basophils 0.01 Sodium 141 Potassium 3.4 L Chloride 108 H Carbon Dioxide 23.2 Anion Gap 9.8 BUN 7 Creatinine 0.70 Estimated GFR/1.73 m2 >= 60.00 Glucose 139 H Calcium 7.6 L Magnesium 1.7 L Albumin 2.8 L [facility] Medical History Diabetes type 2, controlled (Chronic) HTN (hypertension) (Chronic) Moderate opioid dependence on maintenance therapy (Chronic) Surgical History Status post open reduction with internal fixation (ORIF) of fracture of ankle (Acute) Left Social History Smoking/Tobacco Use Status: Current every day Alcohol Intake: never Drug use: Current Sobriety Substance use type: heroin Details: 8 bags/day IVDA---comming off Buprenorphine--unknown dose Do you feel safe at home: Yes Do you feel safe in your relationship?: Yes
[2020-01-21 14:52] VITALS: BP 177/103; PULSE 117
--- NOTE | 2020-01-22 20:19 | PDOC.CMDIS ---
- If Service Date Differs Date of service: 01/21/20 Time of Service: 14:00 LACE Index Scoring Tool - Questions: Length of Stay (in days): 3 Acuity (Admit via E.D.?): Yes Comorbidities: Diabetes w/o Complication E.D. Visits: 2 - Answers: Total Score: 9 Risk of Readmission: Low Risk Care Management Discharge Reason for Hospitalization: Intractable Emesis Discharge Plan: Felipe's plan was to remain in the hospital until Saturday however due to family situations she needs to discharge early. Kathi has contacted [facility] and rescheduled her IOP appointment she also contacted [facility] and scheduled her transportation to the [facility] for Saturday. CM scheduled an appointment for the at [facility] and she scheduled her [facility] for that appointment as well. Kathi states she is confident that she can enroll in the program and move forward. CM faxed a referral to [facility] for community case management. Kathi was provided this CM contact information for assistance or questions after discharge. Kathi's daughter will transport her home at the time of discharge. Medication including faxed to [facility] in [place]. Patient/Family Education Needs: Discharge Education, limitations, and follow up plan of care including ask me three and self-management. Services Needed at Discharge: Transportation
== END 2020-01-21 16:30 | disposition home or self-care (01) | DRG 897 ==
LOC: ER 18:19 → MS 18:50
PROVIDERS: Internal Medicine; Admitting Provider Family Medicine; Emergency Provider Emergency Medicine; PCP Physician Assistant; Visit Provider Family Medicine
DX: F11.23 Opioid dependence with withdrawal (principal); E86.0 Dehydration; I10 Essential (primary) hypertension; E11.9 Type 2 diabetes mellitus without complications; K59.00 Constipation, unspecified; E66.9 Obesity, unspecified; E87.6 Hypokalemia; E83.42 Hypomagnesemia; Z11.59 Encounter for screening for other viral diseases; F17.210 Nicotine dependence, cigarettes, uncomplicated
CPT/HCPCS: 36415; 80048; 80053; 80307; 83690; 84145; 85027; 96361; 96365; 96372; 96375; 96376; 99220; 99232; 99239; 99285; U0003; 36010; 74019; 74176; 76705; 81003; 81015; 82040; 83036; 83735; 85025; 85610; 86140; 87086; 99225; 99284; G0378; J1644; J2060; J2405; J2765; J3480

== ENCOUNTER 2020-03-16 10:11 | Emergency (ER) | payer MEDICARE, MEDICAID, SELFPAY ==
[2020-03-16] VITALS (17 sets, daily range): BP systolic 130–177; BP diastolic 53–108; PULSE 58–84; RESP 11–32; TEMP 36.4; O2SAT 99–100
--- NOTE | 2020-03-16 10:00 | RT.EKG_ITS ---
APPROVED REPORT Exam: Resting ECG Patient Location: E HR:71 bpm ECG Measurements Heart Rate 71 AXIS AL 134 P 32 QRSd 88 QRS 49 QT 413 T 67 QTc 447 Conclusion Sinus rhythm...normal P axis, V-rate 60- 99 I have reviewed and interpreted ECG and agree with software generated interpretation.
--- NOTE | 2020-03-16 10:23 | ED.GENADUL_ITS ---
Discharge Plan Disposition Patient Disposition: HOME Condition: Stable Discharge Details Clinical Impression: Opioid dependence with withdrawal Primary Care Provider: Jamshid Irwin ED Provider: Shital Ocampo Home Meds and New Rx's Prescriptions: New loperamide [Imodium A-D] 2 mg tablet 2 mg PO TID PRN (Reason: loose stool) Qty: 10 RF: 0 clonidine HCl [Catapres] 0.1 mg tablet 0.1 mg PO TID 5 Days Qty: 15 RF: 0 ondansetron HCl [Zofran] 4 mg tablet 4 mg PO Q8H PRN (Reason: nausea and vomiting) Qty: 14 RF: 0 Continued buprenorphine-naloxone [Suboxone] 8-2 mg Film 2 film sublingual DAILY RF: 0 sennosides [Senokot] 8.6 mg Tablet 1 tab PO BID Qty: 60 RF: 0 clonidine HCl [Catapres] 0.1 mg Tablet 0.2 mg PO TID Qty: 180 RF: 0 magnesium oxide 400 mg (241.3 mg magnesium) Tablet 400 mg PO DAILY Qty: 30 RF: 0 nicotine 21 mg/24 hr Patch 24 Hour 21 mg transdermal DAILY Qty: 30 RF: 0 docusate sodium [Colace] 100 mg Capsule 100 mg PO BID Qty: 60 RF: 0 bisacodyl 5 mg Tablet,Delayed Release (Dr/Ec) 10 mg PO DAILY PRN PRNQty: 10 RF: 0 pantoprazole [Protonix] 40 mg tablet,delayed release (DR/EC) 40 mg PO DAILY Qty: 30 RF: 0 sucralfate [Carafate] 1 gram tablet 1 gm PO QACHS Qty: 120 RF: 0 ondansetron 4 mg tablet,disintegrating 4 mg PO Q8H PRNQty: 10 RF: 0 metformin 500 mg tablet 500 mg PO BID Qty: 30 RF: 0 (DME) blood-glucose meter [Accu-Chek Guide Glucose Meter] misc See Dose Instructions .ROUTE .MEDSUPPLY Qty: 1 RF: 0 (DME) blood sugar diagnostic [Accu-Chek Guide test strips] strip See Dose Instructions .ROUTE .MEDSUPPLY Qty: 20 RF: 0 (DME) lancets [Lancets, Super Thin] misc See Dose Instructions .ROUTE .MEDSUPPLY Qty: 50 RF: 0 Discharge Instructions Instructions: Opioid Withdrawal (ED) Additional Instructions: You have an appointment at 8 AM tomorrow with the [facility] clinic. Please keep that appointment. Take medications as directed for withdrawal symptoms. Nausea me dication up to 3 times a day, clonidine, Imodium for diarrhea. Please take Tylenol or Ibuprofen with food every 4-6 hours as needed for pain and swelling. Follow up with primary care provider in 3-5 days. Return to ED sooner if any worsening or concerns. Increase oral fluids. [address] , [place] [address] ? ~1.2 fl Referrals: Jamshid Irwin [Primary Care Provider] - Medical Decision Making <Shital Ocampo - Last Filed: 03/16/20 14:45> 44-year-old female presents with nausea vomiting after being off Suboxone for 1 week. Patient took herself off Suboxone due to difficulty making it to the clinic. She reports that nausea vomiting began yesterday. She denies any chest pain, shortness of breath, fever or any other complaints. She is actively vomiting upon initial exam. She has a history of diabetes type 2, hypertension and opioid dependence. 1037: 20 ga INT to Left EJ placed and blood drawn. 1128: Spoke with Dr. Recio at [facility] (formerly [facility]) who does verify that patient was a patient there, she states that the last time that she had a dose was 13 days ago. She was originally on a 20 mg dose. Recommends starting her on 4-8 and then giving another 4 if needed. She will see her in clinic tomorrow. Upon further questioning patient does endorse heroin use 2 to 3 days ago. Discussed that giving her Suboxone at this point could put her into worse withdrawal she verbalized understanding. Patient required 25 mg Phenergan, 8 mg of Zofran and received 2 different doses of a total of 8 of Suboxone sublingual films. Vomiting was more tolerable upon discharge. Instructed to keep appointment with our clinic tomorrow at 8 AM. Wa s given clonidine, Imodium, and Zofran to go and prescriptions were written for these as well. Patient verbalized understanding and was somewhat improved prior to discharge. <Lexy Mayorga DO - Last Filed: 03/16/20 15:15> I did not see or participate in the care of this patient but was available for consult if necessary. HPI <Shital Ocampo - Last Filed: 03/16/20 14:45> General Mode of arrival: EMS . Date/Time Provider Initiated Documentation: 03/16/20 10:14 . Limitations to Documentation: no limitations . Information obtained by: patient and EMS . HPI Narrative: 44-year-old female presents with nausea vomiting after being off Suboxone for 1 week. Patient took herself off Suboxone due to difficulty making it to the clinic. She reports that nausea vomiting began yesterday. She denies any chest pain, shortness of breath, fever or any other complaints. She is actively vomiting upon initial exam. She has a history of diabetes type 2, hypertension and opioid dependence. Related Data Home Medications Medication Instructions Recorded Confirmed blood sugar diagnostic [Accu-Chek #20 each 05/01/18 Guide test strips] blood-glucose meter [Accu-Chek #1 each 05/01/18 Guide Glucose Meter] lancets [Lancets, Super Thin] #50 each 05/01/18 metformin 500 mg PO BID #30 tab 05/01/18 03/16/20 bisacodyl 10 mg PO DAILY PRN PRN #10 tab 01/21/20 03/16/20 buprenorphine-naloxone [Suboxone] 2 film SUBLINGUAL DAILY 01/21/20 03/16/20 clonidine HCl [Catapres] 0.2 mg PO TID #180 tab 01/21/20 03/16/20 docusate sodium [Colace] 100 mg PO BID #60 cap 01/21/20 03/16/20 magnesium oxide 400 mg PO DAILY #30 tab 01/21/20 03/16/20 nicotine 21 mg TRANSDERMAL DAILY #30 ea 01/21/20 03/16/20 ondansetron 4 mg PO Q8H PRN #10 tab 01/21/20 03/16/20 pantoprazole [Protonix] 40 mg PO DAILY #30 tab 01/21/20 03/16/20 sennosides [Senokot] 1 tab PO BID #60 tab 01/21/20 03/16/20 sucralfate [Carafate] 1 gm PO QACHS #120 tab 01/21/20 03/16/20 clonidine HCl [Catapres] 0.1 mg PO TID 5 Days #15 tab 03/16/20 loperamide [Imodium A-D] 2 mg PO TID PRN #10 tab 03/16/20 ondansetron HCl [Zofran] 4 mg PO Q8H PRN #14 tab 03/16/20 Previous Rx's Medication Instructions Recorded blood sugar diagnostic [Accu-Chek #20 each 05/01/18 Guide test strips] blood-glucose meter [Accu-Chek #1 each 05/01/18 Guide Glucose Meter] lancets [Lancets, Super Thin] #50 each 05/01/18 metformin 500 mg PO BID #30 tab 05/01/18 bisacodyl 10 mg PO DAILY PRN PRN #10 tab 01/21/20 clonidine HCl [Catapres] 0.2 mg PO TID #180 tab 01/21/20 docusate sodium [Colace] 100 mg PO BID #60 cap 01/21/20 magnesium oxide 400 mg PO DAILY #30 tab 01/21/20 nicotine 21 mg TRANSDERMAL DAILY #30 ea 01/21/20 ondansetron 4 mg PO Q8H PRN #10 tab 01/21/20 pantoprazole [Protonix] 40 mg PO DAILY #30 tab 01/21/20 sennosides [Senokot] 1 tab PO BID #60 tab 01/21/20 sucralfate [Carafate] 1 gm PO QACHS #120 tab 01/21/20 clonidine HCl [Catapres] 0.1 mg PO TID 5 Days #15 tab 03/16/20 loperamide [Imodium A-D] 2 mg PO TID PRN #10 tab 03/16/20 ondansetron HCl [Zofran] 4 mg PO Q8H PRN #14 tab 03/16/20 Allergies Allergy/AdvReac Type Severity Reaction Status Date / Time codeine [Codeine] Allergy facial Unverified 01/19/20 09:11 swelling/rash General Stated Complaint: DrugWithdr/MAT MARIE: 3 Review of Systems <Shital Ocampo - Last Filed: 03/16/20 14:45> Narrative: Constitutional: Negative for weight loss, alert and oriented, well groomed, normal body habitus, appears comfortable. HEENT: Denies trauma, headaches, blurry vision, nasal discharge, sore throat, trouble swallowing. Chest: Denies chest pain, palpitations, irregular rhythm, hypertension. Respiratory: Denies Shortness of breath, cough, hemoptysis. GI: Denies abdominal pain. Positive nausea vomiting. Reports a history of constipation. : Denies dysuria, hematuria, flank pain, rectal bleeding. Neuro: Denies dizziness, blurry vision, weakness, syncope, headache or facial numbness. Hematologic: Denies easy bruising, intolerance to heat or cold, hair loss. PFSH <Shital Ocampo - Last Filed: 03/16/20 14:45> Medical History (Updated 03/16/20 @ 12:40 by Shital Ocampo) Diabetes type 2, controlled HTN (hypertension) Moderate opioid dependence on maintenance therapy Surgical History Status post open reduction with internal fixation (ORIF) of fracture of ankle Left Social History Smoking/Tobacco Use Status: Current every day Alcohol Intake: never Drug use: Daily Do you feel safe at home: Yes Do you feel safe in your relationship?: Yes Exam <Shital Ocampo - Last Filed: 03/16/20 14:45> Narrative Exam Narrative: Constitutional: Alert and oriented x3. Appears stated age. Normal body habitus. Head: Normocephalic, no trauma. Eyes: Pupils PERRLA, Red reflex noted, EOM's intact. Eyelids symmetrical without lesions, discharge, or swelling. ENT: Bilateral TM's WNL, External ear normal to inspection, no mastoid TTP, swelling, or erythema, Nasal turbinates WNL, no nasal discharge. Normal dentition, Posterior pharynx WNL, no exudate. Chest: RRR, Normal S1, S2, distal pulses intact. Resp: Lungs clear to auscultation bilaterally, no wheezes, rales, or rhonchi. Musculoskeletal: Normal gait, 5/5 strength to all four extremities. Skin: No suspicious rashes or lesions. Capillary refill less than 2 sec. Neurologic: Cranial nerves II-XII intact. Alert and oriented x 3. DTR's intact. Hematologic/Lymphatic: No ecchymosis, no lymphadenopathy. Course <Shital Ocampo - Last Filed: 03/16/20 14:45> Vital Signs Vital signs: Vital Signs Temperature 36.4 C 03/16/20 10:09 Pulse 72 03/16/20 10:09 Respiratory Rate 18 03/16/20 10:09 Blood Pressure 130/96 H 03/16/20 10:09 Pulse Oximetry 100 03/16/20 10:09 Temperature 36.4 C 03/16/20 10:09 Temperature Source Tympanic 03/16/20 10:09 Pulse 72 03/16/20 10:09 Respiratory Rate 18 03/16/20 10:09 Respiratory Effort Non-Labored 03/16/20 10:13 Blood Pressure 130/96 H 03/16/20 10:09 Blood Pressure Position Sitting 03/16/20 10:09 Pulse Oximetry 100 03/16/20 10:09 Oxygen Delivery Method Room Air 03/16/20 10:09 Oxygen Flow Rate 0 03/16/20 10:09 Comment 03/16/20 10:09
[2020-03-16] MEDS: Normal Saline 1,000 ML 1000 ML IV ×2 (10:43→12:03)
[2020-03-16] MEDS: Ondansetron 4 MG/2 ML VIAL IVP ×2 (10:43→13:13)
[2020-03-16 10:49] LABS: Abs Immature Grans 0.07 10^3/uL (0.0-0.06); Absolute Basophil Count 0.04 10^3/uL (0.0-0.2); Absolute Monocyte Count 0.75 10^3/uL (0.1-0.8); Basophils % 0.3; Eosinophils % 0.2; HGB 15.4 g/dL (11.2-15.7); Immature Grans % 0.6; Lymphocytes % 12.2; MCH 28.2 pg (27.0-33.0); MCV 80.6 fL (80-95); MPV 11.4 fL (8.0-11.0); Neutrophils % 80.7; Nucleated RBC 0 %; Platelet Count 212 10^3/uL (130-400); RBC 5.46 10^6/uL (3.93-5.22); RDW 13.5 % (11.7-14.6); RDW-SD 38.8 fL
[2020-03-16 10:53] LABS: Absolute Eosinophil Count 0.03 10^3/uL (0.0-0.7); Absolute Lymphocyte Count 1.53 10^3/uL (1.2-3.4); Absolute Neutrophil Count 10.09 10^3/uL (1.2-6.7)
[2020-03-16] MEDS: Normal Saline Flush 10 ML SYR IVP ×2 (11:00→11:22)
--- NOTE | 2020-03-16 11:15 | RT.EKG_ITS ---
APPROVED REPORT Exam: Resting ECG Patient Location: E HR:62 bpm ECG Measurements Heart Rate 62 AXIS HI 153 P 37 QRSd 88 QRS 46 QT 457 T 2 QTc 464 Conclusion Sinus rhythm...normal P axis, V-rate 60- 99 I have reviewed and interpreted ECG and agree with software generated interpretation.
[2020-03-16] MEDS: Buprenorphine/Naloxone 4 mg/1 mg FILM 1 EACH SL ×2 (11:46→12:45)
[2020-03-16 12:01] LABS: ALT 59 U/L (14-59); AST 61 U/L (15-37); Albumin 3.7 g/dL (3.4-5.0); Alkaline Phosphatase 54 U/L (46-116); BUN 11 mg/dL (7-18); Bilirubin, Total 1.2 mg/dL (0.2-1.0); CREATININE 0.97 mg/dL (0.55-1.02); Calcium 9.4 mg/dL (8.5-10.1); Chloride 105 mmol/L (98-107); Glucose 244 mg/dL (74-106); Magnesium 1.7 mg/dL (1.8-2.4); Potassium 3.8 mmol/L (3.5-5.1); Sodium 138 mmol/L (136-145)
[2020-03-16 12:35] LABS: ETHANOL BLOOD < 3.0 mg/dL (<3)
[2020-03-16 13:54] LABS: Bilirubin Negative (Negative); Blood Large (Negative); Clarity Clear (Clear); Glucose 100 mg/dL (Negative); Ketones 40 mg/dL (Negative); Leukocyte Esterase Negative (Negative); Nitrite Negative (Negative); Specific Gravity 1.025 (1.005-1.025)
[2020-03-16] MEDS: cloNIDine 0.1 MG TAB PO (14:01)
[2020-03-16] MEDS: Loperamide 2 MG CAP PO (14:01)
[2020-03-16] MEDS: Ondansetron O.D.T. 4 MG TABEF, 3 TABS/BTL PO (14:02)
[2020-03-16 14:06] LABS: Bacteria Rare HPF (Negative); C & S Indicated? No; Casts Negative LPF (Negative); Crystals Negative HPF (Negative); Epithelial Cells Few HPF (Negative); Mucus Trace (Negative); WBC 0-2 HPF (0-5)
[2020-03-16 14:11] LABS: *AMPHETAMINES SCREEN URINE Negative (Negative); *BARBITURATES SCREEN URINE Negative (Negative); *BENZODIAZEPINES SCREEN URINE Negative (Negative); Cannabinoids THC Negative (Negative); Cocaine Screen,Urine Negative (Negative); METHADONE URINE SCREEN Negative (Negative); OPIATES URINE SCREEN Negative (Negative)
[2020-03-16 14:13] LABS: Tricyclic Antidepressants Negative (Negative)
--- NOTE | 2020-03-28 09:18 | NUR.NOTE ---
Nursing Note: Found copy of [facility] Consent for treatment with Buprenorphine in folder. It was faxed today to [facility] and then sent to Medical Records to be scanned into patient record. Dorcas Boateng
== END 2020-03-16 14:04 | disposition home or self-care (01) ==
PROVIDERS: Emergency Provider Registered Nurse Emergency; PCP Physician Assistant
DX: F11.23 Opioid dependence with withdrawal (principal); R11.2 Nausea with vomiting, unspecified; T40.4X6A Underdosing of other synthetic narcotics, initial encounter; Z91.128 Patient's intentional underdosing of medication regimen for other reason; E11.9 Type 2 diabetes mellitus without complications; Z79.84 Long term (current) use of oral hypoglycemic drugs; I10 Essential (primary) hypertension
CPT/HCPCS: 36415; 80053; 80307; 93005; 96361; 96365; 96375; 96376; 99284; 36010; 80320; 81003; 81015; 83735; 85025; 93010; J2405

== ENCOUNTER 2023-03-31 11:38 | Emergency (ER) | payer MEDICARE, MEDICAID, SELFPAY ==
[2023-03-31 11:44] VITALS: BP 175/86; PULSE 100; RESP 16; TEMP 36.5; O2SAT 98
--- NOTE | 2023-03-31 11:45 | DI.RAD_ITS ---
Exam(s) XR FINGER RT RING EXAM: XR FINGER RT RING CLINICAL HISTORY: injury, laceration. TECHNIQUE: 2D digital imaging was performed. COMPARISON: No exams were available for comparison FINDINGS: Three views of the right 4th-ring finger reveal a significantly displaced fracture at the proximal an d mid aspect of the distal phalanx. Fracture line appears to involve the DIP joint. There is also a n avulsed fragment off the dorsal base of the distal phalanx. In addition, the distal phalanx is in flexion and this implies that there is possibly injury to the extensor tendon. No radiopaque foreign body. IMPRESSION: Comminuted fracture of the distal phalanx of the 4th-ring finger with intra-articular extension and d isplacement. Suspect ligament injury. DATA REPOSITORY: RADIATION DOSE DELIVERED:
[2023-03-31] MEDS: Lidocaine/Epinephri/Tetracaine Topical Gel 3 ML TP (12:06)
--- NOTE | 2023-03-31 12:48 | DI.VRAD_ITS ---
PROCEDURE INFORMATION: Exam: XR Right Finger(s) Exam date and time: 03/31/2023 12:25 PM Age: 48 years old Clinical indication: Injury or trauma; Other: Injury, laceration; Right; Ring finger TECHNIQUE: Imaging protocol: Radiologic exam of the right fingers. Views: Minimum 2 views. COMPARISON: No relevant prior studies available. FINDINGS: Bones/joints: Comminuted fracture mid to proximal aspect of distal phalanx extending intra-articular proximally at level of distal interphalangeal joint 4th digit hand (ring finger), with angulation, distraction, displacement of fragments. Fourth digit hand held in flexed position especially at level of distal interphalangeal joint. Correlate for ligament, tendon, muscle injury or other contracture/process. No additional displaced fracture nor dislocation seen. Soft tissues: No metallic foreign body seen. IMPRESSION: 1. Comminuted intra-articular fracture distal phalanx 4th digit hand (ring finger) with angulation and displacement of fragments. 2. Fourth digit hand held in flexed position especially at level of distal interphalangeal joint. Correlate for ligament, tendon, muscle injury or other contracture/process Dictated and Authenticated by: Andry Reddy MD. Ordering:PAZ Hamm MD
--- NOTE | 2023-03-31 14:23 | ED.GENADUL_ITS ---
Discharge Plan Disposition Patient Disposition: Transfer-Acute Inpatient Care Specific Acute Inpt Facility: [facility] Discharge Details Clinical Impression: Open fracture of distal phalanx of right ring finger Primary Care Provider: Jamshid Irwin ED Provider: Hansel Hutchinson [place] Meds and New Rx's Prescriptions: No Action buprenorphine-naloxone [Suboxone] 8-2 mg Film 2 film sublingual DAILY sennosides [Senokot] 8.6 mg Tablet 1 tab PO BID Qty: 60 0RF clonidine HCl [Catapres] 0.1 mg Tablet 0.2 mg PO TID Qty: 180 0RF magnesium oxide 400 mg (241.3 mg magnesium) Tablet 400 mg PO DAILY Qty: 30 0RF nicotine 21 mg/24 hr Patch 24 Hour 21 mg transdermal DAILY Qty: 30 0RF docusate sodium [Colace] 100 mg Capsule 100 mg PO BID Qty: 60 0RF bisacodyl 5 mg Tablet,Delayed Release (Dr/Ec) 10 mg PO DAILY PRN PRNQty: 10 0RF pantoprazole [Protonix] 40 mg tablet,delayed release (DR/EC) 40 mg PO DAILY Qty: 30 0RF sucralfate [Carafate] 1 gram tablet 1 gm PO QACHS Qty: 120 0RF ondansetron 4 mg tablet,disintegrating 4 mg PO Q8H PRNQty: 10 0RF loperamide [Imodium A-D] 2 mg tablet 2 mg PO TID PRN (Reason: loose stool) Qty: 10 0RF ondansetron HCl [Zofran] 4 mg tablet 4 mg PO Q8H PRN (Reason: nausea and vomiting) Qty: 14 0RF metformin 500 mg tablet 500 mg PO BID Qty: 30 0RF Patient Comments: 01/19/20 er--not taken for months (DME) blood-glucose meter [Accu-Chek Guide Glucose Meter] misc See Dose Instructions .ROUTE .MEDSUPPLY Qty: 1 0RF Dose Instruction: As directed Rx Instructions: As directed (DME) blood sugar diagnostic [Accu-Chek Guide test strips] strip See Dose Instructions .ROUTE .MEDSUPPLY Qty: 20 0RF Dose Instruction: As directed Rx Instructions: As directed (DME) lancets [Lancets, Super Thin] misc See Dose Instructions .ROUTE .MEDSUPPLY Qty: 50 0RF Dose Instruction: As directed Rx Instructions: As directed Discharge Instructions Additional Instructions: It was recommended that you take ambulance and you have refused at this recommendation. Please keep dressing intact and go immediately to [facility] emergency department for further treatment. Discharge Data Discharge Date/Time-TO BE ENTERED AT DEPARTURE: 03/31/23 14:59 Medical Decision Making 48-year-old female here with injury to right fourth digit. X-ray of the finger was interpreted by radiology: Comminuted fracture of the distal phalanx of the fourth ring finger with intra-articular extension and displacement. Suspect ligament injury. Plan to treat for open fracture of the distal phalanx fourth digit with significant laceration/partial amputation. Digital block was performed and wound was irrigated. No orthopedic coverage available at [facility] today. Patient will be given Ancef 1 g IV prophylactically. Tetanus booster given. Called [facility] transfer center to request transfer and was informed that [facility] could not accept the patient due to ED being at capacity. Transfer request refused. I called [facility] transfer center to request transfer. Patient accepted by Dr. Darling in the emergency department. I recommended patient be transferred by ambulance and she provided informed refusal and plans to drive by private vehicle. Sterile dressing applied. 1450 --nursing unable to obtain IV access. Patient refusing additional attempts at this time would prefer to go to [facility]. Patient provided informed refusal of additional treatment at this time. I will give keflex 500mg PO. HPI General Mode of arrival: ambulatory . Date/Time Provider Initiated Documentation: 03/31/23 11:49 . Limitations to Documentation: no limitations . Information obtained by: patient . History of Present Illness 48 year old F presents to the emergency department with the chief complaint of Dr. Hutchinson great patient to see you patient states she never said she justP, HPI Narrative: 48-year-old female with history of diabetes, presents with injury to her right fourth digit. Patient notes window closed on her finger. Injury occurred just prior to arrival. She sustained laceration. She has significant pain in the finger. Patient unclear of last tetanus status. Patient is she is able to feel the end of her finger. Related Data Home Medications Medication Instructions Recorded Confirmed blood sugar diagnostic (Accu-Chek #20 ea 05/01/18 Guide test strips) blood-glucose meter (Accu-Chek #1 ea 05/01/18 Guide Glucose Meter) lancets (Lancets, Super Thin) #50 ea 05/01/18 metformin 500 mg tablet 500 mg PO BID #30 tabs 05/01/18 03/16/20 bisacodyl 5 mg tablet,delayed 10 mg PO DAILY PRN PRN #10 tabs 01/21/20 03/16/20 release buprenorphine 8 mg-naloxone 2 mg 2 film sublingual DAILY 01/21/20 03/16/20 sublingual film (Suboxone) clonidine HCl 0.1 mg tablet 0.2 mg PO TID #180 tabs 01/21/20 03/16/20 (Catapres) docusate sodium 100 mg capsule 100 mg PO BID #60 caps 01/21/20 03/16/20 (Colace) magnesium oxide 400 mg (241.3 mg 400 mg PO DAILY #30 tabs 01/21/20 03/16/20 magnesium) tablet nicotine 21 mg/24 hr daily 21 mg transdermal DAILY #30 ea 01/21/20 03/16/20 transdermal patch ondansetron 4 mg disintegrating 4 mg PO Q8H PRN #10 tabs 01/21/20 03/16/20 tablet pantoprazole 40 mg tablet,delayed 40 mg PO DAILY #30 tabs 01/21/20 03/16/20 release (Protonix) sennosides 8.6 mg tablet (Senokot) 1 tab PO BID #60 tabs 01/21/20 03/16/20 sucralfate 1 gram tablet (Carafate) 1 gm PO QACHS #120 tabs 01/21/20 03/16/20 loperamide 2 mg tablet (Imodium 2 mg PO TID PRN loose stool #10 03/16/20 A-D) tabs ondansetron HCl 4 mg tablet 4 mg PO Q8H PRN nausea and 03/16/20 (Zofran) vomiting #14 tabs Previous Rx's Medication Instructions Recorded blood sugar diagnostic (Accu-Chek #20 ea 05/01/18 Guide test strips) blood-glucose meter (Accu-Chek #1 ea 05/01/18 Guide Glucose Meter) lancets (Lancets, Super Thin) #50 ea 05/01/18 metformin 500 mg tablet 500 mg PO BID #30 tabs 05/01/18 bisacodyl 5 mg tablet,delayed 10 mg PO DAILY PRN PRN #10 tabs 01/21/20 release clonidine HCl 0.1 mg tablet 0.2 mg PO TID #180 tabs 01/21/20 (Catapres) docusate sodium 100 mg capsule 100 mg PO BID #60 caps 01/21/20 (Colace) magnesium oxide 400 mg (241.3 mg 400 mg PO DAILY #30 tabs 01/21/20 magnesium) tablet nicotine 21 mg/24 hr daily 21 mg transdermal DAILY #30 ea 01/21/20 transdermal patch ondansetron 4 mg disintegrating 4 mg PO Q8H PRN #10 tabs 01/21/20 tablet pantoprazole 40 mg tablet,delayed 40 mg PO DAILY #30 tabs 01/21/20 release (Protonix) sennosides 8.6 mg tablet (Senokot) 1 tab PO BID #60 tabs 01/21/20 sucralfate 1 gram tablet (Carafate) 1 gm PO QACHS #120 tabs 01/21/20 loperamide 2 mg tablet (Imodium 2 mg PO TID PRN loose stool #10 03/16/20 A-D) tabs ondansetron HCl 4 mg tablet 4 mg PO Q8H PRN nausea and 03/16/20 (Zofran) vomiting #14 tabs Allergies Allergy/AdvReac Type Severity Reaction Status Date / Time codeine [Codeine] Allergy facial Unverified 03/31/23 11:50 swelling/rash General Stated Complaint: Laceration MARIE: 4 Review of Systems Integumentary/Breasts Skin/Breast: Reports as per HPI PFSH All Active Problems (Updated 03/31/23 @ 14:36 by Hansel Hutchinson MD) Open fracture of distal phalanx of right ring finger (Acute) Hepatic cirrhosis (Chronic) Cholelithiasis (Chronic) Tobacco abuse (Acute) Hypomagnesemia (Acute) Hypokalemia (Acute) Obesity (BMI 30-39.9) (Acute) COVID-19 ruled out by laboratory testing (Acute) Discharge planning issues (Acute) DVT prophylaxis (Acute) Dehydration (Acute) HTN (hypertension) (Chronic) Intractable nausea and vomiting (Acute) Moderate opioid dependence on maintenance therapy (Chronic) Diabetes type 2, controlled (Chronic) Constipation (Acute) Vomiting (Acute) Surgical History Status post open reduction with internal fixation (ORIF) of fracture of ankle Left Social History Smoking/Tobacco Use Status: Current every day Smoking risk assessment performed?: Yes Alcohol Intake: never Drug use: Daily Housing: house Do you feel safe at home: Yes Do you feel safe in your relationship?: Yes Exam Const General: cooperative and no acute distress Cardio Rate: regular rate and not tachycardic Rhythm: regular rhythm Skin Trauma: laceration (Distal fourth digit) Extrem General: no edema Right upper extremity: hand Details: other (Fourth digit with horizontal laceration palmar surface with flexion at DIP, patient unable to extend at DIP, distal sensation intact) Course Vital Signs Vital signs: Vital Signs Temperature 36.5 C 03/31/23 11:44 Pulse 100 H 03/31/23 11:44 Respiratory Rate 16 03/31/23 11:44 Blood Pressure 175/86 H 03/31/23 11:44 Pulse Oximetry 98 03/31/23 11:44 Temperature 36.5 C 03/31/23 11:44 Temperature Source Oral 03/31/23 11:44 Pulse 100 H 03/31/23 11:44 Respiratory Rate 16 03/31/23 11:44 Respiratory Effort Normal, Non-Labored 03/31/23 12:18 Blood Pressure 175/86 H 03/31/23 11:44 Blood Pressure Position Sitting 03/31/23 11:44 Pulse Oximetry 98 03/31/23 11:44 Oxygen Delivery Method Room Air 03/31/23 11:44 Oxygen Flow Rate 0 03/31/23 11:44 Pain Level 7 03/31/23 11:44 Procedures Nerve Block Nerve Block 1: Time out performed: Yes Local Anesthetic: Bupivicaine 0.5% Amount of anesthesia used (mL): 5 Side: right Nerve Blocks: digital Procedure Successful: Yes Patient Tolerated Procedure: well Complications: none
[2023-03-31] MEDS: Cephalexin 500 MG CAP PO (14:56)
--- NOTE | 2023-04-01 08:15 | NUR.NOTE ---
Accessed Patient chart for [facility] who was advised last night that she would be coming to their location for treatment. She is listed as inpatient here at this time. Nursing Note:
--- NOTE | 2023-04-01 08:42 | NUR.NOTE ---
Upon further review, it was noted that Pt is not inpatient here. Nursing Note:
== END 2023-03-31 14:59 | disposition short-term general hospital (02) ==
PROVIDERS: Emergency Provider Student in an Organized Health Care Education/Training Program; PCP Physician Assistant
DX: S62.634B Displaced fracture of distal phalanx of right ring finger, initial encounter for open fracture; S67.194A Crushing injury of right ring finger, initial encounter; E11.9 Type 2 diabetes mellitus without complications; F17.200 Nicotine dependence, unspecified, uncomplicated; Z79.84 Long term (current) use of oral hypoglycemic drugs; Z79.899 Other long term (current) drug therapy; M79.644 Pain in right finger(s)
CPT/HCPCS: 64450; 90471; 99284; 73140

== ENCOUNTER 2024-12-21 00:11 | Emergency (ER) | payer MEDICARE, MEDICAID, SELFPAY ==
[2024-12-21 00:12] VITALS: BP 144/87; PULSE 80; RESP 16; TEMP 36.9; O2SAT 97
--- NOTE | 2024-12-21 00:19 | ED.GENADUL_ITS ---
Discharge Plan Disposition Patient Disposition: [facility] Condition: Stable Discharge Details Clinical Impression: Medical clearance for incarceration Primary Care Provider: Jamshid Irwin ED Provider: Jonatan Rizzo and New Rx's Prescriptions: No Action buprenorphine-naloxone [Suboxone] 8-2 mg Film 2 film sublingual DAILY sennosides [Senokot] 8.6 mg Tablet 1 tab PO BID Qty: 60 0RF clonidine HCl [Catapres] 0.1 mg Tablet 0.2 mg PO TID Qty: 180 0RF magnesium oxide 400 mg (241.3 mg magnesium) Tablet 400 mg PO DAILY Qty: 30 0RF nicotine 21 mg/24 hr Patch 24 Hour 21 mg transdermal DAILY Qty: 30 0RF docusate sodium [Colace] 100 mg Capsule 100 mg PO BID Qty: 60 0RF bisacodyl 5 mg Tablet,Delayed Release (Dr/Ec) 10 mg PO DAILY PRN PRNQty: 10 0RF pantoprazole [Protonix] 40 mg tablet,delayed release (DR/EC) 40 mg PO DAILY Qty: 30 0RF sucralfate [Carafate] 1 gram tablet 1 gm PO QACHS Qty: 120 0RF ondansetron 4 mg tablet,disintegrating 4 mg PO Q8H PRNQty: 10 0RF loperamide [Imodium A-D] 2 mg tablet 2 mg PO TID PRN (Reason: loose stool) Qty: 10 0RF metformin 500 mg tablet 500 mg PO BID Qty: 30 0RF Patient Comments: 01/19/20 er--not taken for months (DME) blood-glucose meter [Accu-Chek Guide Glucose Meter] misc See Dose Instructions .ROUTE .MEDSUPPLY Qty: 1 0RF Dose Instruction: As directed Rx Instructions: As directed (DME) blood sugar diagnostic [Accu-Chek Guide test strips] strip See Dose Instructions .ROUTE .MEDSUPPLY Qty: 20 0RF Dose Instruction: As directed Rx Instructions: As directed (DME) lancets [Lancets, Super Thin] misc See Dose Instructions .ROUTE .MEDSUPPLY Qty: 50 0RF Dose Instruction: As directed Rx Instructions: As directed Discharge Instructions Additional Instructions: You were seen in the ED to be medically cleared for law enforcement. Your exam, vital signs, blood sugar are all reassuring and you are being released into the custody of P. HPI General Mode of arrival: ambulatory . Date/Time Provider Initiated Documentation: 12/21/24 00:13 . Limitations to Documentation: other (Does not wish to speak in front of police) . Information obtained by: patient, police and RN notes reviewed . HPI Narrative: Patient presenting in custody of [facility]. [facility] requesting medical screening exam prior to being brought to corrections. Patient does not wish to discuss how she came into custody. Police have in custody for alcohol/drug use. She denies any physical complaints. She does have history of diabetes and hypertension but is not compliant with treatment or checking blood sugars. She currently denies any type of headache, chest pain, shortness of breath, abdominal pain, neurologic changes, fever. Related Data Home Medications ?Medication ?Instructions ?Recorded ?Confirmed blood sugar diagnostic (Accu-Chek #20 ea 05/01/18 Guide test strips) blood-glucose meter (Accu-Chek #1 ea 05/01/18 Guide Glucose Meter) lancets (Lancets, Super Thin) #50 ea 05/01/18 metformin 500 mg tablet 500 mg PO BID #30 tabs 05/0112/21/24 bisacodyl 5 mg tablet,delayed 10 mg (2 x 5 mg) PO JEET Y PRN PRN 01/21/20 12/21/24 release #10 tabs buprenorphine 8 mg-naloxone 2 mg 2 film sublingual LENNY LY 01/21/20 12/21/24 sublingual film (Suboxone) clonidine HCl 0.1 mg tablet 0.2 mg (2 x 0.1 mg) PO TID #180 01/21/20 12/21/24 (Catapres) tabs docusate sodium 100 mg capsule 100 mg PO BID #60 caps 01/21/20 12/21/24 (Colace) magnesium oxide 400 mg (241.3 mg 400 mg PO DAILY #30 t abs 01/21/20 12/21/24 magnesium) tablet nicotine 21 mg/24 hr daily 21 mg transdermal DAILY #30 ea 01/21/20 12/21/24 transdermal patch ondansetron 4 mg disintegrating 4 mg PO Q8H PRN #10 ta bs 01/21/20 12/21/24 tablet pantoprazole 40 mg tablet,delayed 40 mg PO DAILY #30 t abs 01/21/20 12/21/24 release (Protonix) sennosides 8.6 mg tablet (Senokot) 1 tab PO BID #60 ta bs 01/21/20 12/21/24 sucralfate 1 gram tablet (Carafate) 1 gm PO QACHS #120 tabs 01/21/20 12/21/24 loperamide 2 mg tablet (Imodium 2 mg PO TID PRN loose stool #10 03/16/20 12/21/24 A-D) tabs Previous Rx's ?Medication ?Instructions ?Recorded blood sugar diagnostic (Accu-Chek #20 ea 05/01/18 Guide test strips) blood-glucose meter (Accu-Chek #1 ea 05/01/18 Guide Glucose Meter) lancets (Lancets, Super Thin) #50 ea 05/01/18 metformin 500 mg tablet 500 mg PO BID #30 tabs 05/01 bisacodyl 5 mg tablet,delayed 10 mg (2 x 5 mg) PO JEET Y PRN PRN 01/21/20 release #10 tabs clonidine HCl 0.1 mg tablet 0.2 mg (2 x 0.1 mg) PO TID #180 01/21/20 (Catapres) tabs docusate sodium 100 mg capsule 100 mg PO BID #60 caps 01/21/20 (Colace) magnesium oxide 400 mg (241.3 mg 400 mg PO DAILY #30 t abs 01/21/20 magnesium) tablet nicotine 21 mg/24 hr daily 21 mg transdermal DAILY #30 ea 01/21/20 transdermal patch ondansetron 4 mg disintegrating 4 mg PO Q8H PRN #10 ta bs 01/21/20 tablet pantoprazole 40 mg tablet,delayed 40 mg PO DAILY #30 t abs 01/21/20 release (Protonix) sennosides 8.6 mg tablet (Senokot) 1 tab PO BID #60 ta bs 01/21/20 sucralfate 1 gram tablet (Carafate) 1 gm PO QACHS #120 tabs 01/21/20 loperamide 2 mg tablet (Imodium 2 mg PO TID PRN loose stool #10 03/16/20 A-D) tabs Allergies Allergy/AdvReac Type Severity Reaction Status Date / Time codeine (Codeine) Allergy facial Unverified 12/21/24 00:22 swelling/rash General Stated Complaint: ETOHWithdr MARIE: 5 Exam Narrative Exam Narrative: Const: WDWN female in NAD. VS per triage. HEENT: NC/AT. Normal facial exam. Neck: Supple. Trachea midline. Lungs: Normal respiratory effort. Lungs are clear. Cor: RRR without murmur. Good radial pulses. Neuro: Dozes off but answers appropriately. Normal speech, mentation. Cranial nerves II - XII grossly intact. No gross motor or sensory deficit. Course Vital Signs Vital signs: Vital Signs Temperature 98.4 F 12/21/24 00:12 Pulse 80 12/21/24 00:12 Respiratory Rate 16 12/21/24 00:12 Blood Pressure 144/87 H 12/21/24 00:12 Pulse Oximetry 97 12/21/24 00:12 Temperature 98.4 F 12/21/24 00:12 Temperature Source Oral 12/21/24 00:12 Pulse 80 12/21/24 00:12 Respiratory Rate 16 12/21/24 00:12 Blood Pressure 144/87 H 12/21/24 00:12 Pulse Oximetry 97 12/21/24 00:12 Oxygen Delivery Method Room Air 12/21/24 00:12 Oxygen Flow Rate 0 12/21/24 00:12 Pain Level 0 12/21/24 00:12 Medical Decision Making Patient is in ED for clearance before being taken to corrections by [facility]. Reported to be in custody due to alcohol/drug use. She does doze off but wakes easily, answers questions coherently, and has no complaints. She admits to being noncompliant with medications and is a diabetic. A fingerstick blood sugar is 136. Blood pressure is a little high but vital signs are otherwise unremarkable. Exam unremarkable. Patient medically screened and appears to have no acute emergent condition that would preclude her being released into police custody. Lab Data Lab results reviewed: Yes I reviewed the patient's lab results. [facility] All Active Problems Medical clearance for incarceration (Acute) Cholelithiasis (Chronic) Tobacco abuse (Acute) Obesity (BMI 30-39.9) (Acute) Moderate opioid dependence on maintenance therapy (Chronic) Medical History Diabetes type 2, controlled HTN (hypertension) Hepatic cirrhosis Surgical History Status post open reduction with internal fixation (ORIF) of fracture of ankle Left Social History Smoking/Tobacco Use Status: Current every day Tobacco Type: cigarettes Smoking risk assessment performed?: Yes Alcohol Intake: never Drug use: Daily Substance use type: crack/cocaine and sedatives Details: states she uses fentanyl and crack Housing: house Do you feel safe at home: Yes Do you feel safe in your relationship?: Yes
== END 2024-12-21 00:45 ==
LOC: ER 00:31
PROVIDERS: Emergency Provider Emergency Medicine; PCP Physician Assistant
DX: E11.9 Type 2 diabetes mellitus without complications; I10 Essential (primary) hypertension; F17.210 Nicotine dependence, cigarettes, uncomplicated; Z79.84 Long term (current) use of oral hypoglycemic drugs
CPT/HCPCS: 82962; 99283

== ENCOUNTER 2025-01-24 14:45 | Emergency (ER) | payer MEDICARE, MEDICAID, SELFPAY ==
[2025-01-24] VITALS (23 sets, daily range): BP systolic 160–206; BP diastolic 75–102; PULSE 57–78; RESP 9–14; TEMP 36.8–37.2; O2SAT 96–99
--- NOTE | 2025-01-24 14:45 | RT.EKG_ITS ---
APPROVED REPORT Exam: Resting ECG Reason for Exam: trauma Patient Location: E HR:70 bpm ECG Measurements Heart Rate 70 AXIS DE 134 P 69 QRSd 91 QRS 33 QT 449 T 70 QTc 486 Conclusion Sinus rhythm...normal P axis, V-rate 60- 99 Sinus Rhythm. No prior for comparrison. WD
--- NOTE | 2025-01-24 15:00 | DI.CT_ITS ---
Exam(s) CT HEAD CERVICAL SPINE WO EXAM: CT HEAD CERVICAL SPINE WO CLINICAL HISTORY: trauma. TECHNIQUE: Imaging Protocol: Axial computed tomography images with coronal and sagittal reformatted images were created and reviewed COMPARISON: No exams were available for comparison FINDINGS: Head CT Ventricles and Extra axial spaces: Normal in size and morphology for the patient's age. Hemorrhage: None. Cerebral parenchyma: No evidence of mass or acute infarct. Midline shift: None. Brainstem/Cerebellum: Normal. Calvarium: Normal. Visualized Paranasal sinuses/Mastoids: Clear. Soft tissues: Soft tissue swelling above the left orbit. Cervical Spine CT Exam mildly limited by motion. BONES: Vertebral body heights are maintained. Alignment is normal. There is no evidence of acute fracture. Degenerative disc changes and facet degenerative changes are seen at C5-6 and C6-7.. SOFT TISSUES: No paraspinal hematoma. The airway appears intact. No pneumothorax is seen at the lung apices. Emphysematous changes present. IMPRESSION: Head CT: Soft tissue swelling around the left orbit. No acute intracranial abnormality. C-spine CT: Degenerative changes, no acute abnormality. The preliminary [facility] report was reviewed. RADIATION DOSE DELIVERED: Total DLP DATA REPOSITORY: All CT scans at this facility are submitted to the National Radiology Data Registry (NRDR) Dose Index Registry (DIR) with the [employer] (ACR). RADIATION OPTIMIZATION: All CT scans at this facility use at least one of these dose optimization techniques: automated exposure control; mA and/or kV adjustment per patient size (includes targeted exams where dose is matched to clinical indication); or iterative reconstruction.
--- NOTE | 2025-01-24 15:00 | DI.CT_ITS ---
Exam(s) CT THORACIC LUMBAR SPINE WO EXAM: CT THORACIC LUMBAR SPINE WO CLINICAL HISTORY: trauma. TECHNIQUE: Imaging Protocol: Axial computed tomography images with coronal and sagittal reformatted images were created and reviewed. CONTRAST MATERIAL: Intravenous: None COMPARISON: CT CT ABDOMEN PELVIS WO from 01/19/2020 FINDINGS: THORACIC SPINAL COLUMN: No evidence of fracture or listhesis nor significant disc space narrowing. Facet joints unremarkable. No facet malalignment. No canal compromise. LUMBOSACRAL SPINAL COLUMN: No evidence of fracture, listhesis, nor pars interarticularis defects. All the disc spaces exhibit normal height. Bone density normal. No osseous lesions. No osseous canal compromise IMPRESSION: No acute osseous findings in the thoracic and lumbosacral spinal columns. Incidentally noted is a concerning mass in the right kidney. See separate CT abdomen report. RADIATION DOSE DELIVERED: 285 mGy.cm Total DLP DATA REPOSITORY: All CT scans at this facility are submitted to the National Radiology Data Registry (NRDR) Dose Index Registry (DIR) with the [employer] (ACR). RADIATION OPTIMIZATION: All CT scans at this facility use at least one of these dose optimization techniques: automated exposure control; mA and/or kV adjustment per patient size (includes targeted exams where dose is matched to clinical indication); or iterative reconstruction.
--- NOTE | 2025-01-24 15:00 | DI.CT_ITS ---
Exam(s) CT CHEST/ABD/PEL W EXAM: CT CHEST/ABD/PEL W CLINICAL HISTORY: trauma. TECHNIQUE: Imaging Protocol: Axial computed tomography images with coronal and sagittal reformatted images were created and reviewed CONTRAST MATERIAL: Intravenous: Omnipaque 350 Contrast volume:100 ml Oral: None COMPARISON: CT CT THORACIC LUMBAR SPINE WO from 01/24/2025 FINDINGS: CHEST: LUNGS: No evidence of lung contusion nor pleural effusions nor pneumothorax. No ominous pulmonary nodules. MEDIASTINUM: No evidence of sternal fracture or mediastinal hematoma. No incidental hilar nor mediastinal adenopathy. No axillary adenopathy. CARDIAC: Heart size is normal. There is no pericardial effusion.Thoracic aorta appears intact. Moderate atherosclerotic involvement noted. No aneurysm. No dissection. OSSEOUS: No significant osseous lesions.No fractures.. ABDOMEN: There is no ascites. LIVER: The liver appearance is cirrhotic. There is no evidence of liver laceration nor obvious neoplastic lesion liver. No obvious dilatation of intrahepatic ducts. GALLBLADDER/BILIARY: Gallbladder is moderately distended. No obvious radiopaque calculi in its lumen. CBD is not dilated. PANCREAS: No evidence of pancreatic mass nor dilatation of the pancreatic duct. SPLEEN: No evidence of splenic laceration or subcapsular hematoma. Spleen size is enlarged measuring 15.8 cm. Splenic and portal veins are patent. ADRENALS: There are no significant adrenal masses. KIDNEYS: There are no renal lacerations. The left kidney is unremarkable. There is incidentally noted a concerning mass in the lateral cortex of the right kidney which measures 4 by 4.2 cm. This is suspicious for malignancy/renal cell carcinoma.. The right renal vein appears patent. There are no calculi in either kidney and no hydronephrosis nor hydroureter. ABDOMINAL AORTA: The abdominal aorta is atherosclerotic but not enlarged. Similar findings for the iliac arteries. LYMPH NODES: There is no retroperitoneal nor paraaortic adenopathy. ABDOMINAL WALL: No evidence of significant anterior abdominal wall nor inguinal hernia. GI: No evidence of mesenteric nor bowel wall hematoma.No evidence of bowel obstruction nor free air. PELVIS: LYMPH NODES: There is no intrapelvic nor inguinal adenopathy. GI: No evidence of appendicitis.No evidence of sigmoid diverticulitis. URINARY BLADDER: No calculi nor masses evident REPRODUCTIVE: Uterus and adnexal regions appear age-appropriate. No extraovarian adnexal masses. No free fluid in the pelvis. OSSEOUS: No fractures nor significant osseous lesions. IMPRESSION: 1. Most significant finding here is incidental spina 4 by 4.2 cm mass in the right kidney suspicious for neoplasm/renal cell carcinoma. The opposite-left kidney appears unremarkable. This requires appropriate referral and further imaging. 2. Hepatic cirrhosis and splenomegaly. There is no ascites. 3. No significant acute trauma sequelae in the chest, abdomen, and pelvis. Preliminary virtual Radiology report was reviewed. The virtual Radiology radiologist spoke personally with the ER physician [facility] on 01/24/2025 at 5:03 p.m. concerning this incidental finding. RADIATION DOSE DELIVERED: Total DLP DATA REPOSITORY: All CT scans at this facility are submitted to the National Radiology Data Registry (NRDR) Dose Index Registry (DIR) with the [employer] (ACR). RADIATION OPTIMIZATION: All CT scans at this facility use at least one of these dose optimization techniques: automated exposure control; mA and/or kV adjustment per patient size (includes targeted exams where dose is matched to clinical indication); or iterative reconstruction.
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
[2025-01-24 15:22] LABS: ALT 38 U/L (14-59); AST 52 U/L (15-37); Albumin 3.4 g/dL (3.4-5.0); Alkaline Phosphatase 59 U/L (46-116); Anion Gap 7.3 mmol/L (3-11); BUN 11 mg/dL (7-18); Bilirubin, Total 1.0 mg/dL (0.2-1.0); CO2 26.7 mmol/L (21.0-32.0); Calcium 8.6 mg/dL (8.5-10.1); Chloride 105 mmol/L (98-107); Estimated GFR 111.34 (mL/min/1.73m2); Glucose 113 mg/dL (74-106); Lipase 34 U/L (<78); Potassium 4.0 mmol/L (3.5-5.1); Sodium 139 mmol/L (136-145); Total Protein 7.2 g/dL (6.4-8.2)
[2025-01-24 15:24] LABS: Abs Immature Grans 0.01 10^3/uL (0.0-0.06); HCT 37.3 % (36.0-46.0); HGB 12.6 g/dL (11.2-15.7); Immature Grans % 0.1 %; MCH 28.6 pg (27.0-33.0); MCHC 33.8 % (32.0-36.0); MCV 85 fL (80-95); MPV 10.4 fL (8.0-11.0); Platelet Count 131 10^3/uL (130-400); RBC 4.41 10^6/uL (3.93-5.22); RDW 14.1 % (11.7-14.6); RDW-SD 43.8 fL; WBC 6.72 10^3/uL (4.4-10.8)
[2025-01-24] MEDS: Normal Saline - Diluent 50 ML VIAL IJ (15:31)
--- NOTE | 2025-01-24 16:09 | DI.VRAD_ITS ---
PROCEDURE INFORMATION: Exam: CT Head Without Contrast Exam date and time: 01/24/2025 3:31 PM Age: 49 years old Clinical indication: Other: Trauma TECHNIQUE: Imaging protocol: Computed tomography of the head without contrast. Radiation optimization: All CT scans at this facility use at least one of these dose optimization techniques: automated exposure control; mA and/or kV adjustment per patient size (includes targeted exams where dose is matched to clinical indication); or iterative reconstruction. COMPARISON: No relevant prior studies available. FINDINGS: Brain: Normal. No hemorrhage. Unremarkable white matter. No mass effect. Cerebral ventricles: No ventriculomegaly. Paranasal sinuses: Visualized sinuses are unremarkable. No fluid levels. Mastoid air cells: Visualized mastoid air cells are well aerated. Bones: Unremarkable. No acute fracture. Soft tissues: Left periorbital soft tissue edema. IMPRESSION: Left periorbital soft tissue edema. PROCEDURE INFORMATION: Exam: CT Cervical Spine Without Contrast Exam date and time: 01/24/2025 3:31 PM Age: 49 years old Clinical indication: Other: Trauma TECHNIQUE: Imaging protocol: Computed tomography of the cervical spine without contrast. Radiation optimization: All CT scans at this facility use at least one of these dose optimization techniques: automated exposure control; mA and/or kV adjustment per patient size (includes targeted exams where dose is matched to clinical indication); or iterative reconstruction. COMPARISON: No relevant prior studies available. FINDINGS: Bones: No acute fracture. Normal alignment. No significant disc bulge or herniation. Moderate disc space narrowing at C6-C7. No severe spinal canal stenosis. No significant neural foraminal narrowing. Lungs: Lung apices are normal. Soft tissues: Unremarkable. IMPRESSION: No acute cervical spine fracture. Dictated and Authenticated by: Saniya Sam MD. Orderin Artie Nicolas MD
--- NOTE | 2025-01-24 17:05 | DI.VRAD_ITS ---
PROCEDURE INFORMATION: Exam: CT Thoracic Spine Without Contrast Exam date and time: 01/24/2025 4:15 PM Age: 49 years old Clinical indication: Other: Trauma TECHNIQUE: Imaging protocol: Computed tomography of the thoracic spine without contrast. Radiation optimization: All CT scans at this facility use at least one of these dose optimization techniques: automated exposure control; mA and/or kV adjustment per patient size (includes targeted exams where dose is matched to clinical indication); or iterative reconstruction. COMPARISON: No relevant prior studies available. FINDINGS: Bones/joints: No acute fracture. Normal alignment. No significant disc bulge or herniation. No severe spinal canal stenosis. No significant neural foraminal narrowing. Soft tissues: Unremarkable. IMPRESSION: No acute findings. PROCEDURE INFORMATION: Exam: CT Lumbar Spine Without Contrast Exam date and time: 01/24/2025 4:15 PM Age: 49 years old Clinical indication: Other: Trauma TECHNIQUE: Imaging protocol: Computed tomography of the lumbar spine without contrast. Radiation optimization: All CT scans at this facility use at least one of these dose optimization techniques: automated exposure control; mA and/or kV adjustment per patient size (includes targeted exams where dose is matched to clinical indication); or iterative reconstruction. COMPARISON: CT ABDOMEN PELVIS WO 01/19/2020 2:52 PM FINDINGS: Bones/joints: No acute fracture. Normal alignment. No significant disc bulge or herniation. No severe spinal canal stenosis. No significant neural foraminal narrowing. Kidneys and ureters: Right renal mass as detailed on CT abdomen same day. Soft tissues: Unremarkable. IMPRESSION: 1. Right renal mass as detailed on CT abdomen same day. 2. No lumbar spine fracture. Dictated and Authenticated by: Saniya Sam MD. Orderin Artie Nicolas MD
--- NOTE | 2025-01-24 17:07 | DI.VRAD_ITS ---
PROCEDURE INFORMATION: Exam: CT Chest With Contrast; Diagnostic Exam date and time: 01/24/2025 4:15 PM Age: 49 years old Clinical indication: Other: Trauma TECHNIQUE: Imaging protocol: Diagnostic computed tomography of the chest with contrast. Radiation optimization: All CT scans at this facility use at least one of these dose optimization techniques: automated exposure control; mA and/or kV adjustment per patient size (includes targeted exams where dose is matched to clinical indication); or iterative reconstruction. Contrast material: OMNI 350; Contrast volume: 75 ml; Contrast route: INTRAVENOUS (IV); COMPARISON: No relevant prior studies available. FINDINGS: Lungs: Emphysema. No focal consolidation. Pleural spaces: Unremarkable. No pneumothorax. No pleural effusion. Heart: Unremarkable. No cardiomegaly. No pericardial effusion. Lymph nodes: Unremarkable. No enlarged lymph nodes. Vasculature: Unremarkable. No aortic aneurysm. Bones/joints: Unremarkable. No acute fracture. Soft tissues: Unremarkable. IMPRESSION: No acute findings. PROCEDURE INFORMATION: Exam: CT Abdomen And Pelvis With Contrast Exam date and time: 01/24/2025 4:15 PM Age: 49 years old Clinical indication: Other: Trauma TECHNIQUE: Imaging protocol: Computed tomography of the abdomen and pelvis with contrast. Radiation optimization: All CT scans at this facility use at least one of these dose optimization techniques: automated exposure control; mA and/or kV adjustment per patient size (includes targeted exams where dose is matched to clinical indication); or iterative reconstruction. Contrast material: OMNI 350; Contrast volume: 75 ml; Contrast route: INTRAVENOUS (IV); COMPARISON: CT ABDOMEN PELVIS WO 01/19/2020 2:52 PM FINDINGS: Liver: Hepatic cirrhosis. Gallbladder and biliary ducts: Normal. No calcified stones. No ductal dilation. Pancreas: Normal. No ductal dilation. Spleen: Splenomegaly measures 14.5 cm in craniocaudal dimension. Adrenal glands: Normal. No mass. Kidneys and ureters: Complex mass arising from the midpole right kidney anteriorly measures 3.5 x 3.9 x 3.9 cm (AP/TV/SI). Highly concerning for malignant neoplasm, additional workup necessary. Stomach and bowel: Esophageal varices. No obstruction. No mucosal thickening. Appendix: No evidence of appendicitis. Intraperitoneal space: Unremarkable. No free air. No significant fluid collection. Vasculature: Unremarkable. No abdominal aortic aneurysm. Lymph nodes: Unremarkable. No enlarged lymph nodes. Urinary bladder: Unremarkable as visualized. Reproductive: Unremarkable as visualized. Bones/joints: Unremarkable. No acute fracture. Soft tissues: Unremarkable. IMPRESSION: 1. Complex mass arising from the midpole right kidney anteriorly measures 3.5 x 3.9 x 3.9 cm (AP/TV/SI). Highly concerning for malignant neoplasm, additional workup necessary. 2. Hepatic cirrhosis. 3. Splenomegaly. Findings were discussed with Maria Isabel Oneill on 01/24/2025 5:03 PM EDT Dictated and Authenticated by: Saniya Sam MD. Orderin Artie Nicolas MD
[2025-01-24] MEDS: Lidocaine 1% Pres-Free 5 ML VIAL IJ (18:00)
== END 2025-01-24 19:15 | disposition home or self-care (01) ==
PROVIDERS: Emergency Provider Emergency Medicine Emergency Medical Services; PCP Physician Assistant
DX: S00.83XA Contusion of other part of head, initial encounter (principal); S01.112A Laceration without foreign body of left eyelid and periocular area, initial encounter; N28.89 Other specified disorders of kidney and ureter; K74.60 Unspecified cirrhosis of liver; R16.1 Splenomegaly, not elsewhere classified; I10 Essential (primary) hypertension; E11.9 Type 2 diabetes mellitus without complications; F19.90 Other psychoactive substance use, unspecified, uncomplicated; F17.210 Nicotine dependence, cigarettes, uncomplicated; Z79.84 Long term (current) use of oral hypoglycemic drugs; V48.6XXA Car passenger injured in noncollision transport accident in traffic accident, initial encounter
CPT/HCPCS: 12011; 74177; 80053; 83690; 93005; 99285; 70450; 71260; 72125; 72128; 72131; 85025; 93010; 99284; J2003

== ENCOUNTER 2025-06-16 06:55 | Emergency (ER) | payer MEDICARE, MEDICAID, SELFPAY ==
[2025-06-16 07:00] VITALS: BP 146/68; PULSE 89; RESP 16; TEMP 36.1; O2SAT 97
--- NOTE | 2025-06-16 07:10 | ED.GENADUL_ITS ---
Discharge Plan Disposition Patient Disposition: Home Condition: Good Discharge Details Clinical Impression: Cellulitis of leg, right Primary Care Provider: Jamshid Irwin ED Provider: Serge Mckenna Home Meds and New Rx's Prescriptions: New clindamycin HCl 150 mg capsule 450 mg PO Q6H 7 Days Qty: 84 0RF No Action buprenorphine-naloxone [Suboxone] 8-2 mg Film 2 film sublingual DAILY sennosides [Senokot] 8.6 mg Tablet 1 tab PO BID Qty: 60 0RF clonidine HCl [Catapres] 0.1 mg Tablet 0.2 mg PO TID Qty: 180 0RF magnesium oxide 400 mg (241.3 mg magnesium) Tablet 400 mg PO DAILY Qty: 30 0RF nicotine 21 mg/24 hr Patch 24 Hour 21 mg transdermal DAILY Qty: 30 0RF docusate sodium [Colace] 100 mg Capsule 100 mg PO BID Qty: 60 0RF bisacodyl 5 mg Tablet,Delayed Release (Dr/Ec) 10 mg PO DAILY PRN PRNQty: 10 0RF pantoprazole [Protonix] 40 mg tablet,delayed release (DR/EC) 40 mg PO DAILY Qty: 30 0RF sucralfate [Carafate] 1 gram tablet 1 gm PO QACHS Qty: 120 0RF ondansetron 4 mg tablet,disintegrating 4 mg PO Q8H PRNQty: 10 0RF loperamide [Imodium A-D] 2 mg tablet 2 mg PO TID PRN (Reason: loose stool) Qty: 10 0RF metformin 500 mg tablet 500 mg PO BID Qty: 30 0RF Patient Comments: 01/19/20 er--not taken for months (DME) blood-glucose meter [Accu-Chek Guide Glucose Meter] misc See Dose Instructions .ROUTE .MEDSUPPLY Qty: 1 0RF Dose Instruction: As directed Rx Instructions: As directed (DME) Accu-Chek Guide test strips strip See Dose Instructions .ROUTE .MEDSUPPLY Qty: 20 0RF Dose Instruction: As directed Rx Instructions: As directed (DME) lancets [Lancets, Super Thin] misc See Dose Instructions .ROUTE .MEDSUPPLY Qty: 50 0RF Dose Instruction: As directed Rx Instructions: As directed Discharge Instructions Instructions: Cellulitis (Skin Infection), Adult ED Additional Instructions: At this time you have an infection on your leg. Please take the antibiotic as directed. Please monitor closely for spreading of the redness, swelling or pain. The antibiotic has been sent to your pharmacy on file at [facility] in [place]. If you notice any worsening of your symptoms, or any new symptoms such as vomiting, diarrhea, fever, chills, shortness of breath, chest pain, numbness, weakness, or fainting , please return immediately to the emergency department for reevaluation. Please follow up with your primary care provider as soon as possible for reassessment and reevaluation. As always, it was a pleasure participating in your medical care today. Stand Alone Forms: Portal Information Referrals: Jamshid Irwin [Primary Care Provider, Medicine] [facility] General Date/Time Provider Initiated Documentation: 06/16/25 07:03 . HPI Narrative: 50-year-old female with a past medical history of diabetes mellitus presents today for evaluation of redness and a lesion on the right lower extremity. It occurred initially as a pimple 4 days ago, she squeezed it and then it got worse. Redness spread, it became mildly tender. No drainage or discharge. No fever or chills. No calf pain or tenderness. No history of blood clots. No chest pain or shortness of breath. No other complaints at this time Related Data Home Medications ?Medication ?Instructions ?Recorded ?Confirmed blood sugar diagnostic (Accu-Chek #20 ea 05/01/1805/31 Guide test strips) blood-glucose meter (Accu-Chek #1 ea 05/01/18 06/16/25 Guide Glucose Meter) lancets (Lancets, Super Thin) #50 ea 05/01/18 06/16/25 metformin 500 mg tablet 500 mg PO BID #30 tabs 05/0106/16/25 bisacodyl 5 mg tablet,delayed 10 mg (2 x 5 mg) PO JEET Y PRN PRN 01/21/20 06/16/25 release #10 tabs buprenorphine 8 mg-naloxone 2 mg 2 film sublingual LENNY LY 01/21/20 06/16/25 sublingual film (Suboxone) clonidine HCl 0.1 mg tablet 0.2 mg (2 x 0.1 mg) PO TID #180 07/23/20 12/17/25 (Catapres) tabs docusate sodium 100 mg capsule 100 mg PO BID #60 caps 01/21/20 06/16/25 (Colace) magnesium oxide 400 mg (241.3 mg 400 mg PO DAILY #30 t abs 01/21/20 06/16/25 magnesium) tablet nicotine 21 mg/24 hr daily 21 mg transdermal DAILY #30 ea 01/21/20 06/16/25 transdermal patch ondansetron 4 mg disintegrating 4 mg PO Q8H PRN #10 ta bs 01/21/20 06/16/25 tablet pantoprazole 40 mg tablet,delayed 40 mg PO DAILY #30 t abs 01/21/20 06/16/25 release (Protonix) sennosides 8.6 mg tablet (Senokot) 1 tab PO BID #60 ta bs 01/21/20 06/16/25 sucralfate 1 gram tablet (Carafate) 1 gm PO QACHS #120 tabs 01/21/20 06/16/25 loperamide 2 mg tablet (Imodium 2 mg PO TID PRN loose stool #10 03/16/20 06/16/25 A-D) tabs clindamycin HCl 150 mg capsule 450 mg (3 x 150 mg) PO Q6H 7 days 06/16/25 #84 caps Previous Rx's ?Medication ?Instructions ?Recorded blood sugar diagnostic (Accu-Chek #20 ea 05/01/18 Guide test strips) blood-glucose meter (Accu-Chek #1 ea 05/01/18 Guide Glucose Meter) lancets (Lancets, Super Thin) #50 ea 05/01/18 metformin 500 mg tablet 500 mg PO BID #30 tabs 05/01 bisacodyl 5 mg tablet,delayed 10 mg (2 x 5 mg) PO JEET Y PRN PRN 01/21/20 release #10 tabs clonidine HCl 0.1 mg tablet 0.2 mg (2 x 0.1 mg) PO TID #180 01/21/20 (Catapres) tabs docusate sodium 100 mg capsule 100 mg PO BID #60 caps 01/21/20 (Colace) magnesium oxide 400 mg (241.3 mg 400 mg PO DAILY #30 t abs 01/21/20 magnesium) tablet nicotine 21 mg/24 hr daily 21 mg transdermal DAILY #30 ea 01/21/20 transdermal patch ondansetron 4 mg disintegrating 4 mg PO Q8H PRN #10 ta bs 01/21/20 tablet pantoprazole 40 mg tablet,delayed 40 mg PO DAILY #30 t abs 01/21/20 release (Protonix) sennosides 8.6 mg tablet (Senokot) 1 tab PO BID #60 ta bs 01/21/20 sucralfate 1 gram tablet (Carafate) 1 gm PO QACHS #120 tabs 01/21/20 loperamide 2 mg tablet (Imodium 2 mg PO TID PRN loose stool #10 03/16/20 A-D) tabs clindamycin HCl 150 mg capsule 450 mg (3 x 150 mg) PO Q6H 7 days 06/16/25 #84 caps Allergies Allergy/AdvReac Type Severity Reaction Status Date / Time codeine (Codeine) Allergy facial Unverified 06/16/25 07:05 swelling/rash General Stated Complaint: Cellulitis MARIE: 4 Exam Narrative Exam Narrative: 1.Const: Well-nourished, Well-developed, appearing stated age 2.Eyes: PERRL, no conjunctival injection, and symmetrical lids. 3.ENT: Atraumatic external nose and ears. Moist MM. Neck: Symmetric, trachea midline, No thyromegaly. 4.CVS: +S1/S2, Peripheral pulses 2+ and equal in all extremities. Brisk capillary refill in all extremities. 5.RESP: Unlabored respiratory effort. Clear to auscultation bilaterally. No wheezes rales or rhonchi 6.GI: Soft, Nontender/Nondistended, No hepatosplenomegaly. No guarding or rebound. 7.MSK: Normocephalic/Atraumatic, Extremities w/o deformity or ttp No cyanosis or clubbing, Normal movement of all extremities 8.Skin: Right leg demonstrates mild cellulitis at the medial aspect proximal to the ankle and distal to the calf. There is a central small eschar with a mild amount of purulence. No calf tenderness. No pitting edema. No fluctuance or abscess. No tenderness in the popliteal space. 9.Neuro: broomcorn scraper II-XII grossly intact. Sensation grossly intact, no focal neurologic deficits. 10.Psych: (AAO) x3. Appropriate mood and affect Course Vital Signs Vital signs: Vital Signs Temperature 36.1 C L 06/16/25 07:00 Pulse 89 06/16/25 07:00 Respiratory Rate 16 06/16/25 07:00 Blood Pressure 146/68 H 06/16/25 07:00 Pulse Oximetry 97 06/16/25 07:00 Temperature 36.1 C L 06/16/25 07:00 Temperature Source Tympanic 06/16/25 07:00 Pulse 89 06/16/25 07:00 Respiratory Rate 16 06/16/25 07:00 Blood Pressure 146/68 H 06/16/25 07:00 Blood Pressure Position Sitting 06/16/25 07:00 Pulse Oximetry 97 06/16/25 07:00 Oxygen Delivery Method Room Air 06/16/25 07:00 Oxygen Flow Rate 0 06/16/25 07:00 Pain Level 4 06/16/25 07:00 Medical Decision Making 50-year-old female with a past medical history of diabetes mellitus presents today for evaluation of redness and a lesion on the right lower extremity. It occurred initially as a pimple 4 days ago, she squeezed it and then it got wor se. Redness spread, it became mildly tender. No drainage or discharge. No fever or chills. No calf pain or tenderness. No history of blood clots. No chest pain or shortness of breath. No other complaints at this time Exam demonstrates evidence of cellulitis, small oozing with a central eschar. The area was cultured. No evidence of calf tenderness, chest pain shortness of breath or tachycardia to suggest blood clot PE or DVT. No fever to suggest sepsis. Symptoms consistent with mild cellulitis. Will start clindamycin out of concern for MRSA. Patient will be given the first dose here and prescription for home. Discussed red flags for which to return. I have extensively reviewed the treatment plan and discharge instructions with the patient. I have addressed all patient concerns at this time. The patient was made aware of what symptoms to monitor for that would warrant a return to the emergency department. Discussed the plan with the patient, they demonstrate verbal understanding and agreement with our assessment and plan at this time. The documentation in this chart was dictated using [employer] dictation software. Please excuse any dictation errors. PFSH All Active Problems (Updated 06/16/25 @ 07:10 by Serge Mckenna DO) Cellulitis of leg, right (Acute) Cholelithiasis (Chronic) Tobacco abuse (Acute) Obesity (BMI 30-39.9) (Acute) Moderate opioid dependence on maintenance therapy (Chronic) Medical History Diabetes type 2, controlled HTN (hypertension) Hepatic cirrhosis Surgical History Status post open reduction with internal fixation (ORIF) of fracture of ankle Left Social History Smoking/Tobacco Use Status: Current every day Tobacco Type: cigarettes Smoking risk assessment performed?: Yes Alcohol Intake: never Drug use: Daily Substance use type: crack/cocaine and sedatives Details: states she uses fentanyl and crack Housing: house Do you feel safe at home: Yes Do you feel safe in your relationship?: Yes
[2025-06-16 07:12] VITALS: BP 146/68; PULSE 89; RESP 16; TEMP 36.1; O2SAT 97
[2025-06-16] MEDS: Clindamycin 150 MG CAP 450 MG PO (07:17)
--- NOTE | 2025-06-18 11:21 | NUR.NOTE ---
Nursing Note: this RN in chart d/y pt calling in with questions where her prescription sent
--- NOTE | 2025-06-19 10:54 | NUR.NOTE ---
Access chart to obtain the patient address to mail out a letter from Dr. Martinez. Nursing Note:
== END 2025-06-16 07:19 | disposition home or self-care (01) ==
LOC: ER 07:21
PROVIDERS: Emergency Provider Student in an Organized Health Care Education/Training Program; PCP Physician Assistant
DX: L03.115 Cellulitis of right lower limb (principal)
CPT/HCPCS: 99283 ×2; 87077; 87070; 87186; 87205